=== PATIENT | male | born 1980 | race Caucasian/White ===

== ENCOUNTER 2016-11-17 03:38 | Emergency (ER) | payer SELFPAY ==
[2016-11-17 03:48] VITALS: BP 133/90; PULSE 92; BMI 45.6
[2016-11-17] MEDS ORDERED: LIDOCAINE 1%/EPI 1:100000 (20 ML MULTI DOSE VIAL) INF ONE (03:54)
[2016-11-17] MEDS ORDERED: BACITRACIN 0.9 GM PACKET TP ONE (04:37)
[2016-11-17] MEDS ORDERED: CEPHALEXIN MONOHYDRATE 500 MG CAPSULE (UD) PO ONE (04:37)
[2016-11-17] MEDS ORDERED: TETANUS AND DIPHTHERIA TOXOID 0.5 ML DISP.SYRIN IM ONE (04:37)
[2016-11-17] MEDS ORDERED: CEPHALEXIN MONOHYDRATE 250 MG CAPSULE (FP) ONE (05:04)
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
== END 2016-11-17 06:53 | disposition home or self-care (01) ==
LOC: JER 03:38
PROC: 0HQ0XZZ Repair Scalp Skin, External Approach (ICD-10-PCS; principal; 2016-11-17)
DX: S01.01XA Laceration without foreign body of scalp, initial encounter (principal); Y29.XXXA Contact with blunt object, undetermined intent, initial encounter; Y93.89 Activity, other specified; Y92.018 Other place in single-family (private) house as the place of occurrence of the external cause
CPT/HCPCS: 70450-TC; 99283-25

== ENCOUNTER 2018-10-25 14:47 | Inpatient (IN) | payer OTHER ==
--- NOTE | 2018-10-25 14:54 | PDOC ---
Rapid Medical Evaluation Time Seen by Provider: 10/25/18 14:50 Medical Evaluation: Allergies Allergy/AdvReac Type Severity Reaction Status Date / Time No Known Allergies Allergy Verified 10/25/18 14:49 10/25/18 14:50 I have performed a brief in-person evaluation of this patient. The patient presents with a chief complaint of: Dizziness upon waking up an hour ago. PMHx anemia, alcohol abuse. Pt says that after he drank 5 beers and his dizziness went away. NO dizziness now, no CP, no SOB. He wants to make sure his hemoglobin is not too low, he has been drinking a lot lately and not eating well. He drinks about 12 beers a day, has never had detox, would be willing to have detox. Pertinent physical exam findings: Pt in NAD, no clinical signs of intoxication I have ordered the following: CBC, CMP, mag, phos, type and screen, etoh level The patient will proceed to the ED for further evaluation. 10/25/18 14:56 Discharge Disposition - Diagnosis Dizziness - Referrals - Patient Instructions - Post Discharge Activity
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
--- NOTE | 2018-10-25 16:26 | PDOC ---
*Physical Exam - Vital Signs Last Vital Signs Temp Pulse Resp BP Pulse Ox 98.7 F 105 H 18 122/69 97 10/25/18 14:49 10/25/18 14:49 10/25/18 14:49 10/25/18 14:49 10/25/18 14:49 - Physical Exam General Appearance: Yes: Appropriately Dressed. No: Apparent Distress HEENT: positive: Normal Voice Respiratory/Chest: positive: Lungs Clear, Normal Breath Sounds. negative: Chest Tender, Respiratory Distress, Accessory Muscle Use Cardiovascular: positive: Regular Rhythm, S1, S2, Tachycardia. negative: JVD, Murmur Gastrointestinal/Abdominal: positive: Normal Bowel Sounds, Soft. negative: Tender Rectal Exam: positive: heme negative stool, normal exam, NL Prostate, normal rectal tone. negative: hemorrhoids Musculoskeletal: positive: Normal Inspection. negative: CVA Tenderness Extremity: positive: Normal Capillary Refill, Normal Inspection, Normal Range of Motion Integumentary: positive: Normal Color, Dry, Warm Neurologic: positive: cleaner touch up worker II-XII NML intact, Fully Oriented, Alert, Normal Mood/ Affect, Normal Response, Motor Strength 5/5, Finger to Nose. negative: Facial Droop, Sensory Deficit ED Treatment Course - LABORATORY CBC & Chemistry Diagram: 10/25/18 15:41 10/25/18 15:41 Progress Note - Progress Note Progress Note: Received signout from OSCAR Cornejo. Briefly this is a 38-year-old male history of anemia requiring transfusions presents emergency departments seeking detox but reporting he felt more fatigued than normal which is his usual symptom for anemia. Patient was concerned with bilateral Lotrimin swelling. Her previous provider patient's denied any active bleeding at this time. EKG, labs, urine and Duplex Dopplers are pending Medical Decision Making - Medical Decision Making 10/25/18 17:50 CBC notable for hemoglobin 7.6, hematocrit 25.7, platelets 35 Chemistry is notable for AST of 81, alkaline phosphatase-137 Coagulation profile is normal Urinalysis is unremarkable Patient's blood counts likely due to chronic alcohol use over the past 30 days. This patient is no active bleeding or petechia I will defer transfusion at this time with a low threshold to transfuse should he develop any active bleeding. Anemia studies have been ordered Awaiting results of DVT study and will admit to hospitalist service. 10/25/18 18:56 Notified by RN the patient was reporting a headache. Patient evaluated. Vague right-sided headache rated 2/10. Patient is unable to describe the pain. Neurologic exam is unremarkable. This erythematous center. We'll get a stat head CT to rule out ICH. 10/25/18 20:24 CT of the head as reviewed by me: No obvious bleed present. CIWA-[id number]- [id number] Headache is likely from alcohol withdrawal given patient had initial alcohol level of 300 and is now slightly tremulous. Heart rate is noted to be elevated at 109 bpm. I'll treat the patient with banana bag, Reglan 10 mg IV, Librium 50 mg orally. Awaiting official read of sonogram and head CT for admission. EKG is sinus rhythm with rate of 102. Normal intervals present. No skin changes noted 10/25/18 20:30 10/25/18 20:41 CT scan of the head as read by Dr. Padilla: No CT evidence of acute intracranial pathology. 10/25/18 21:04 10/25/18 21:17 Case has been discussed with the hospitalist who accepts patient for inpatient telemetry. *DC/Admit/Observation/Transfer Diagnosis at time of Disposition: Pancytopenia, Alcohol dependence with withdrawal, uncomplicated - Discharge Dispostion Condition at time of disposition: Fair Decision to Admit order: Yes - Referrals - Patient Instructions - Post Discharge Activity
[2018-10-25 16:33] LABS: BASO % 0.6 % (0-2.0); EOS % 2.8 % (0-4.5); HEMATOCRIT 25.7 % (35.4-49); HEMOGLOBIN 7.6 GM/dL (11.7-16.9); LYMPH % 22.6 % (8-40); MCHC 29.5 g/dl (32.0-35.9); MEAN CELL VOLUME 65.4 fl (80-96); MEAN PLT VOLUME 8.8 fl (7.5-11.1); MONO % 11.2 % (3.8-10.2); NEUT % 62.8 % (42.8-82.8); RBC 3.93 M/mm3 (4.00-5.60); RDW 20.9 % (11.9-15.9); WHITE BLOOD COUNT 3.4 K/mm3 (4.0-10.0)
[2018-10-25 16:36] LABS: INR 1.12 (0.83-1.09); PROTHROMBIN TIME (PATIENT) 13.2 SEC (9.7-13.0)
[2018-10-25 16:46] LABS: ALBUMIN 3.4 g/dl (3.4-5.0); ALK PHOS 137 U/L (45-117); ANION GAP 10 MMOL/L (8-16); BILIRUBIN,TOTAL 0.7 mg/dL (0.2-1); BLOOD UREA NITROGEN 3.2 mg/dL (7-18); CHLORIDE 108 mmol/L (98-107); CO2 25 mmol/L (21-32); CREATININE 0.5 mg/dL (0.55-1.3); GLUCOSE,RANDOM 105 mg/dL (74-106); POTASSIUM 3.5 mmol/L (3.5-5.1); SGOT/AST 81 U/L (15-37); SGPT/ALT 47 U/L (13-61); SODIUM 143 mmol/L (136-145); TOT PROT 7.3 g/dl (6.4-8.2)
[2018-10-25 17:04] LABS: PH,URINE 6.5 (5.0-8.0); URINE APPEARANCE CLEAR; URINE BILIRUBIN NEGATIVE (NEGATIVE); URINE COLOR YELLOW; URINE GLUCOSE (UA) NEGATIVE (NEGATIVE); URINE KETONE NEGATIVE (NEGATIVE); URINE LEUK ESTERASE NEGATIVE (NEGATIVE); URINE NITRITE NEGATIVE (NEGATIVE); URINE PROTEIN NEGATIVE (NEGATIVE)
[2018-10-25 17:07] LABS: MCH 19.3 pg (25.7-33.7)
[2018-10-25 17:08] LABS: PLATELET COUNT 35 K/MM3 (134-434)
[2018-10-25 17:52] LABS: ANISOCYTOSIS 2+; MACROCYTOSIS 1+; PLATELET ESTIMATE DECREASED
[2018-10-25 18:05] LABS: MAGNESIUM 1.8 mg/dL (1.8-2.4); PHOSPHOROUS 2.9 mg/dL (2.5-4.9)
[2018-10-25 19:05] LABS: IRON SERUM 13 ug/dL (50-175); TOTAL IRON BINDING CAPACITY 541 ug/dL (250-450)
[2018-10-25] MEDS ORDERED: chlordiazePOXIDE HCL 25 MG CAPSULE PO ONE (20:15)
[2018-10-25] MEDS ORDERED: FOLIC ACID INJECTION - 1 MG, THIAMINE HCL 100 MG, MULTIVIT INJECTION ADULT 10 ML in SOD... IVPB ONE (20:15)
[2018-10-25] MEDS ORDERED: METOCLOPRAMIDE HCL INJECTION 10 MG/2 ML VIAL IVPUSH ONE (20:15)
[2018-10-25] MEDS ORDERED: METOCLOPRAMIDE HCL INJECTION 10 MG/2 ML VIAL ONE (21:45)
[2018-10-25] MEDS ORDERED: chlordiazePOXIDE HCL 25 MG CAPSULE ONE (21:45)
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
[2018-10-25] MEDS ORDERED: MAGNESIUM SULF 50% (8.12 MEQ/2 ML-1 GM VIAL) IVPB ONE (23:02)
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
[2018-10-26] MEDS: chlordiazePOXIDE HCL 25 MG CAPSULE PO SCH ×5 (01:48→22:34)
[2018-10-26 08:19] LABS: BASO % 0.4 % (0-2.0); EOS % 3.6 % (0-4.5); HEMATOCRIT 22.9 % (35.4-49); LYMPH % 28.2 % (8-40); MCHC 30.4 g/dl (32.0-35.9); MEAN PLT VOLUME 8.8 fl (7.5-11.1); MONO % 11.1 % (3.8-10.2); NEUT % 56.7 % (42.8-82.8); RBC 3.52 M/mm3 (4.00-5.60); RDW 21.1 % (11.9-15.9); WHITE BLOOD COUNT 2.4 K/mm3 (4.0-10.0)
[2018-10-26 08:32] LABS: ALBUMIN 3.5 g/dl (3.4-5.0); BILIRUBIN,TOTAL 0.8 mg/dL (0.2-1); BLOOD UREA NITROGEN 4.7 mg/dL (7-18); CREATININE 0.4 mg/dL (0.55-1.3); PHOSPHOROUS 2.8 mg/dL (2.5-4.9); POTASSIUM 3.3 mmol/L (3.5-5.1); TOT PROT 6.8 g/dl (6.4-8.2)
[2018-10-26 08:46] LABS: MCH 19.8 pg (25.7-33.7)
[2018-10-26] MEDS: FOLIC ACID 1 MG TABLET (FP) PO SCH (09:00)
[2018-10-26] MEDS: THIAMINE HCL 100 MG TABLET (FP) PO SCH (09:00)
[2018-10-26 09:11] LABS: PLATELET COUNT 26 K/MM3 (134-434)
--- NOTE | 2018-10-26 10:37 | ECHO ---
Name: CARMEN ARIAS Exam:Adult Echocardiogram Study Date: 10/26/2018 07:59 AM Age: 38 yrs Reason For Study: pre syncope Height: 68 in Weight: 300 lb BSA: 2.4 m2 MMode/2D Measurements & Calculations IVSd: 1.1 cm Ao root diam: 3.3 cm LVIDd: 5.8 cm LA dimension: 4.0 cm LVIDs: 3.1 cm LVPWd: 1.3 cm LVPWs: 1.7 cm EDV(Teich): 163.9 ml ESV(Teich): 37.5 ml LVOT diam: 2.7 cm Doppler Measurements & Calculations MV E max willis: 90.8 cm/sec Ao V2 max: 173.7 cm/sec MV A max willis: 129.8 cm/sec Ao max P.2 mmHg MV E/A: 0.70 Ao V2 mean: 129.8 cm/sec MV dec time: 0.12 sec Ao mean P.9 mmHg Ao V2 VTI: 41.6 cm SHAWN(I,D): 2.9 cm2 SHAWN(V,D): 3.3 cm2 LV V1 max P.0 mmHg SV(LVOT): 121.9 ml LV V1 mean P.4 mmHg LV V1 max: 100.2 cm/sec LV V1 mean: 71.8 cm/sec LV V1 VTI: 21.0 cm PA V2 max: 167.0 cm/sec Med Peak E' Willis: 10.7 cm/sec PA max P.1 mmHg Med E/e': 8.5 Lat Peak E' Willis: 12.7 cm/sec Lat E/e': 7.1 Procedure The study was technically difficult with many images being suboptimal in quality. Left Ventricle Left ventricular systolic function is grossly normal. Ejection Fraction = 55-60%. The transmitral spe ctral Doppler flow pattern is suggestive of impaired LV relaxation. Regional wall motion abnormalities quentin ot be excluded due to limited visualization. Right Ventricle The right ventricle is normal in size and function. A moderator band is seen in the right ventricle. Atria The left atrium is borderline dilated. Right atrial size is normal. Mitral Valve The mitral valve is normal in structure and function. There is no mitral valve stenosis. There is tra ce mitral regurgitation. Tricuspid Valve The tricuspid valve is normal in structure and function. There is trace tricuspid regurgitation. Aortic Valve The aortic valve opens well. No hemodynamically significant valvular aortic stenosis. No aortic regur gitation is present. Pulmonic Valve The pulmonic valve is not well seen, but is grossly normal. There is no pulmonic valvular stenosis. Great Vessels The aortic root is normal size. Pericardium/Pleura There is no pericardial effusion. Interpretation Summary The study was technically difficult with many images being suboptimal in quality. Regional wall motion abnormalities cannot be excluded due to limited visualization. Left ventricular systolic function is grossly normal. Ejection Fraction = 55-60%. The right ventricle is normal in size and function. The left atrium is borderline dilated. There is trace tricuspid regurgitation. There is no pericardial effusion. MD Oliveira *Joey 10/26/2018 10:36 AM
[2018-10-26] MEDS ORDERED: POTASSIUM CHLORIDE ORAL LIQUID 20 MEQ/15 ML PO ONE (11:00)
[2018-10-26 12:16] LABS: PLATELET ESTIMATE DECREASED
--- NOTE | 2018-10-26 14:16 | EKG ---
Test Reason : Blood Pressure : / mmHG Vent. Rate : 102 BPM Atrial Rate : 102 BPM P-R Int : 178 ms QRS Dur : 112 ms QT Int : 372 ms P-R-T Axes : 034 -04 045 degrees QTc Int : 484 ms SINUS TACHYCARDIA POOR R WAVE PROGRESSION NO PREVIOUS ECGS AVAILABLE Confirmed by GIA SUÁREZ MD ([id number]) on 10/26/2018 2:15:52 PM Referred By: Confirmed By:GIA SUÁREZ MD
[2018-10-26] MEDS: chlordiazePOXIDE HCL 25 MG CAPSULE PO PRN (14:26)
--- NOTE | 2018-10-26 14:41 | PN ---
Progress Note, Physician Chief Complaint: patient complaining of diarrhea - Current Medication List Current Medications: Active Medications Chlordiazepoxide HCl (Librium -) 10 mg PO [id number] [facility] Stop: 10/28/18 23:01 Chlordiazepoxide HCl (Librium -) 10 mg PO Q12H STU Stop: 10/29/18 17:01 Chlordiazepoxide HCl (Librium -) 10 mg PO Q4H PRN PRN Reason: WITHDRAWAL(CONT SUBST) Stop: 10/29/18 00:00 Chlordiazepoxide HCl (Librium -) 10 mg PO ONCE@0500 ONE Stop: 10/30/18 05:01 Chlordiazepoxide HCl (Librium -) 50 mg PO [id number] [facility] Stop: 10/26/18 23:01 Last Admin: 10/26/18 12:12 Dose: 50 mg Chlordiazepoxide HCl (Librium -) 25 mg PO [id number] [facility] Stop: 10/27/18 23:01 Chlordiazepoxide HCl (Librium -) 25 mg PO Q4H PRN PRN Reason: WITHDRAWAL(CONT SUBST) Stop: 10/27/18 23:59 Last Admin: 10/26/18 14:26 Dose: 25 mg Folic Acid (Folic Acid -) 1 mg PO DAILY [facility] Last Admin: 10/26/18 09:00 Dose: 1 mg Pantoprazole Sodium (Protonix -) 40 mg PO BID [facility] Thiamine HCl (Vitamin B1 -) 100 mg PO DAILY [facility] Last Admin: 10/26/18 09:00 Dose: 100 mg - Objective Vital Signs: Vital Signs Temperature 98.1 F 10/26/18 10:00 Pulse Rate 110 H 10/26/18 10:00 Respiratory Rate 20 10/26/18 10:00 Blood Pressure 129/77 10/26/18 10:00 O2 Sat by Pulse Oximetry (%) 97 10/26/18 09:00 Constitutional: Yes: Calm, Obese Cardiovascular: Yes: Regular Rate and Rhythm, S1, S2 Respiratory: Yes: CTA Bilaterally Gastrointestinal: Yes: Normal Bowel Sounds, Soft, Abdomen, Obese Edema: Yes Neurological: Yes: Alert, Oriented Labs: CBC, BMP 10/26/18 06:04 10/26/18 06:04 INR, PTT INR 1.12 (0.83-1.09) H 08/01/19 15:41 Assessment/Plan diarrhea check stool ova and parasite c diff monitor lytes thrombocytopenia could be secondary to alcohol toxicity chck liver sono heme consult alcohol withdrawal librium taper
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
[2018-10-26] MEDS: IRON SUCROSE INJECTION 300 MG in SODIUM CHLORIDE 235 ML IVPB SCH (17:42)
--- NOTE | 2018-10-26 19:16 | PN ---
Teaching Attending Note Name of Resident: Alea Martínez ATTENDING PHYSICIAN STATEMENT I saw and evaluated the patient. I reviewed the resident's note and discussed the case with the resident. I agree with the resident's findings and plan as documented. ASSESSMENT AND PLAN: 38 y/o patient with morbid obesity, venous stasis, h/o alcohol abuse,chronic liver disease, anemia, thrombocytopenia Iron deficient Worsened pancytopenia related to alcohol induced marrow suppression. r/o occult infection check u/s liver/spleen check B12/folate/TSH GI w/u once counts improved will follow
[2018-10-26] MEDS ORDERED: PANTOPRAZOLE 40 MG TABLET (FP) PO SCH (22:00)
[2018-10-27] MEDS: chlordiazePOXIDE HCL 25 MG CAPSULE PO SCH ×4 (06:33→22:07)
[2018-10-27 08:40] LABS: BASO % 0.5 % (0-2.0); EOS % 5.1 % (0-4.5); HEMATOCRIT 21.5 % (35.4-49); LYMPH % 21.3 % (8-40); MEAN CELL VOLUME 65.9 fl (80-96); MEAN PLT VOLUME 9.9 fl (7.5-11.1); MONO % 14.4 % (3.8-10.2); NEUT % 58.7 % (42.8-82.8); RBC 3.26 M/mm3 (4.00-5.60); RDW 21.5 % (11.9-15.9); WHITE BLOOD COUNT 2.7 K/mm3 (4.0-10.0)
[2018-10-27 08:41] LABS: MCH 19.8 pg (25.7-33.7)
[2018-10-27 08:43] LABS: HEMOGLOBIN 6.5 GM/dL (11.7-16.9); PLATELET COUNT 30 K/MM3 (134-434)
[2018-10-27 09:08] LABS: CHOLESTEROL 123 mg/dL (50-200); HDL CHOLESTEROL 35 mg/dL (40-60); TRIGLYCERIDES 73 mg/dL (0-150)
[2018-10-27 09:28] LABS: BILIRUBIN,TOTAL 1.3 mg/dL (0.2-1); BLOOD UREA NITROGEN 6.8 mg/dL (7-18); CALCIUM 7.9 mg/dL (8.5-10.1); CREATININE 0.5 mg/dL (0.55-1.3); MAGNESIUM 1.8 mg/dL (1.8-2.4); POTASSIUM 3.4 mmol/L (3.5-5.1)
[2018-10-27] MEDS: FOLIC ACID 1 MG TABLET (FP) PO SCH (09:32)
[2018-10-27] MEDS: THIAMINE HCL 100 MG TABLET (FP) PO SCH (09:33)
[2018-10-27] MEDS: chlordiazePOXIDE HCL 25 MG CAPSULE PO PRN (09:33)
--- NOTE | 2018-10-27 14:17 | PN.GI ---
GI Progress Note Subjective: No acute events No overt bleeding ABD US reveals gallstones and GB polyp. No dilated ducts - Objective Vital Signs: Vital Signs Temperature 99.1 F 10/27/18 09:00 Pulse Rate 94 H 10/27/18 09:00 Respiratory Rate 20 10/27/18 09:00 Blood Pressure 142/79 10/27/18 09:00 O2 Sat by Pulse Oximetry (%) 97 10/27/18 09:00 Constitutional: Calm Eyes: No: Sclera Icterus Cardiovascular: Yes: Regular Rate and Rhythm Respiratory: Yes: Diminished (at bases b/l) Gastrointestinal Inspection: Yes: Other (Large pannus) ...Auscultate: Yes: Normoactive Bowel Sounds ...Palpate: Yes: Soft. No: Tenderness ...Percussion: No: Tympanitic Edema: Yes Neurological: Yes: Alert. No: Asterixis Labs: CBC, BMP 10/27/18 06:29 10/27/18 06:29 INR, PTT INR 1.12 (0.83-1.09) H 10/25/18 15:41 Problem List - Problems (1) Pancytopenia Assessment/Plan: Compnent of iron deficiency When platelet count and Hgb allow, EGD/Colonoscopy. Discussed potential risks of the procedures like but not liomited to bleeding, perforation requiriong surgery to repair, infection, sedation medication effects all of which could be potentially life threatening. He had agreed to the procedures. Code(s): D61.818 - OTHER PANCYTOPENIA (2) Gallstones Assessment/Plan: With GB polyp. Under normal circumstances, patient with concomitant stone and polyps should be evaluated for cholecystectomy given potential increased risk for GB cancer. This could be addressed when Mr. Whaley' clinical status improves. Code(s): K80.20 - CALCULUS OF GALLBLADDER W/O CHOLECYSTITIS W/O OBSTRUCTION
--- NOTE | 2018-10-27 14:48 | PN ---
Progress Note, Physician Chief Complaint: Dizziness Anemia Thrombocytopenia Obesity History of Present Illness: NAD in bed self ambulatory finished 1 unit of PRBC Severely Iron deficient due to poor diet Accepts that his alcoholism is an issue, wants help. Previously followed mandatory outpatient program in [place] when he lived there in his 20's, however, relapsed after 3-4 months. Has not seeked any help since. Family hx of alcoholism in father and 5 of his uncles - Current Medication List Current Medications: Active Medications Chlordiazepoxide HCl (Librium -) 10 mg PO [id number] [facility] Stop: 10/28/18 23:01 Chlordiazepoxide HCl (Librium -) 10 mg PO Q12H [facility] Stop: 10/29/18 17:01 Chlordiazepoxide HCl (Librium -) 10 mg PO Q4H PRN PRN Reason: WITHDRAWAL(CONT SUBST) Stop: 10/29/18 00:00 Chlordiazepoxide HCl (Librium -) 10 mg PO ONCE@0500 ONE Stop: 10/30/18 05:01 Chlordiazepoxide HCl (Librium -) 25 mg PO [id number] [facility] Stop: 10/27/18 23:01 Last Admin: 10/27/18 12:07 Dose: 25 mg Chlordiazepoxide HCl (Librium -) 25 mg PO Q4H PRN PRN Reason: WITHDRAWAL(CONT SUBST) Stop: 10/27/18 23:59 Last Admin: 10/27/18 09:33 Dose: 25 mg Ferrous Sulfate (Feosol -) 325 mg PO DAILY [facility] Folic Acid (Folic Acid -) 1 mg PO DAILY [facility] Last Admin: 10/27/18 09:32 Dose: 1 mg Iron Sucrose 300 mg/ Sodium (Chloride) 250 mls @ 250 mls/hr IVPB DAILY@1600 [facility] Stop: 10/28/18 16:59 Last Admin: 10/26/18 17:42 Dose: 250 mls/hr Potassium Chloride (Potassium Chloride Oral Liquid) 40 meq PO ONCE ONE Stop: 10/27/18 14:47 Thiamine HCl (Vitamin B1 -) 100 mg PO DAILY [facility] Last Admin: 10/27/18 09:33 Dose: 100 mg - Objective Vital Signs: Vital Signs Temperature 99.1 F 10/27/18 09:00 Pulse Rate 94 H 10/27/18 09:00 Respiratory Rate 20 10/27/18 09:00 Blood Pressure 142/79 10/27/18 09:00 O2 Sat by Pulse Oximetry (%) 97 10/27/18 09:00 Constitutional: Yes: Well Nourished, No Distress, Calm, Obese Cardiovascular: Yes: Regular Rate and Rhythm Respiratory: Yes: Regular Gastrointestinal: Yes: WNL, Normal Bowel Sounds, Soft, Abdomen, Obese Genitourinary: Yes: WNL Musculoskeletal: Yes: WNL Extremities: Yes: WNL Edema: Yes Edema: LLE: 1+, RLE: 1+ Peripheral Pulses WNL: Yes Neurological: Yes: Alert, Oriented, Tremors (mild) Psychiatric: Yes: Alert, Oriented Labs: CBC, BMP 10/27/18 06:29 10/27/18 06:29 INR, PTT INR 1.12 (0.83-1.09) H 10/25/18 15:41 Problem List - Problems (1) Obesity Assessment/Plan: -RD consult Code(s): E66.9 - OBESITY, UNSPECIFIED (2) Anemia Assessment/Plan: -Hematology on board -PRBC 1 unit today -monitor daily Hg -Venofer daily x 3 -Ferrous sulfate 1 tab po daily -Stool guaiac negative -Also seen by GI -No invasive procedures for now due to severe thrombocytopenia Code(s): D64.9 - ANEMIA, UNSPECIFIED (3) Dizziness Assessment/Plan: -Cardiology consult -echo and carotid U/S reviewed -Tele monitor Code(s): R42 - DIZZINESS AND GIDDINESS (4) Alcohol dependence with withdrawal, uncomplicated Assessment/Plan: -[facility] consult -On librium protocol -detox inpatient or outpatient upon discharge Code(s): F10.230 - ALCOHOL DEPENDENCE WITH WITHDRAWAL, UNCOMPLICATED (5) Pancytopenia Code(s): D61.818 - OTHER PANCYTOPENIA (6) Hypokalemia Assessment/Plan: -KCl 40 meq once -monitor trend Code(s): E87.6 - HYPOKALEMIA Assessment/Plan see problem list
[2018-10-27] MEDS ORDERED: POTASSIUM CHLORIDE ORAL LIQUID 20 MEQ/15 ML PO ONE (15:30)
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
[2018-10-27] MEDS: IRON SUCROSE INJECTION 300 MG in SODIUM CHLORIDE 235 ML IVPB SCH (18:27)
[2018-10-28] MEDS ORDERED: chlordiazePOXIDE HCL 10 MG CAPSULE PO PRN
[2018-10-28] MEDS: chlordiazePOXIDE 5 MG CAPSULE PO SCH ×4 (05:34→22:37)
[2018-10-28 08:48] LABS: ALBUMIN 2.9 g/dl (3.4-5.0); BLOOD UREA NITROGEN 6.9 mg/dL (7-18); CALCIUM 7.9 mg/dL (8.5-10.1); CREATININE 0.4 mg/dL (0.55-1.3); POTASSIUM 3.4 mmol/L (3.5-5.1)
[2018-10-28 08:57] LABS: BASO % 0.6 % (0-2.0); EOS % 6.2 % (0-4.5); HEMATOCRIT 23.1 % (35.4-49); LYMPH % 20.9 % (8-40); MCH 20.5 pg (25.7-33.7); MCHC 30.4 g/dl (32.0-35.9); MEAN CELL VOLUME 67.4 fl (80-96); MEAN PLT VOLUME 8.8 fl (7.5-11.1); MONO % 13.7 % (3.8-10.2); NEUT % 58.6 % (42.8-82.8); PLATELET COUNT 40 K/MM3 (134-434); RBC 3.43 M/mm3 (4.00-5.60); RDW 22.8 % (11.9-15.9); WHITE BLOOD COUNT 3.1 K/mm3 (4.0-10.0)
[2018-10-28 10:24] LABS: PLATELET ESTIMATE DECREASED
[2018-10-28] MEDS: FOLIC ACID 1 MG TABLET (FP) PO SCH (10:38)
[2018-10-28] MEDS: FERROUS SO4 325 MG TABLET (FP) PO SCH (10:38)
[2018-10-28] MEDS: THIAMINE HCL 100 MG TABLET (FP) PO SCH (10:38)
[2018-10-28] MEDS ORDERED: POTASSIUM CHLORIDE TABS 10 MEQ TABLET.ER (FP) PO SCH (11:42)
--- NOTE | 2018-10-28 11:46 | PN ---
Progress Note, Physician Chief Complaint: Dizziness Anemia Thrombocytopenia Obesity History of Present Illness: NAD in bed self ambulatory Received 1 unit of PRBC yesterday H/h mildly improved Severely Iron deficient due to poor diet Accepts that his alcoholism is an issue, wants help. Previously followed mandatory outpatient program in [place] when he lived there in his 20's, however, relapsed after 3-4 months. Has not seeked any help since. Family hx of alcoholism in father and 5 of his uncles - Current Medication List Current Medications: Active Medications Chlordiazepoxide HCl (Librium -) 10 mg PO [id number] [facility] Stop: 10/28/18 23:01 Last Admin: 10/28/18 10:39 Dose: 10 mg Chlordiazepoxide HCl (Librium -) 10 mg PO Q12H [facility] Stop: 10/29/18 17:01 Chlordiazepoxide HCl (Librium -) 10 mg PO Q4H PRN PRN Reason: WITHDRAWAL(CONT SUBST) Stop: 10/29/18 00:00 Chlordiazepoxide HCl (Librium -) 10 mg PO ONCE@0500 ONE Stop: 10/30/18 05:01 Ferrous Sulfate (Feosol -) 325 mg PO DAILY [facility] Last Admin: 10/28/18 10:38 Dose: 325 mg Folic Acid (Folic Acid -) 1 mg PO DAILY [facility] Last Admin: 10/28/18 10:38 Dose: 1 mg Iron Sucrose 300 mg/ Sodium (Chloride) 250 mls @ 250 mls/hr IVPB DAILY@1600 [facility] Stop: 10/28/18 16:59 Last Admin: 10/27/18 18:27 Dose: 250 mls/hr Potassium Chloride (K-Dur -) 40 meq PO BID [facility] Thiamine HCl (Vitamin B1 -) 100 mg PO DAILY [facility] Last Admin: 10/28/18 10:38 Dose: 100 mg - Objective Vital Signs: Vital Signs Temperature 98.7 F 10/28/18 06:00 Pulse Rate 82 10/28/18 06:00 Respiratory Rate 18 10/28/18 06:00 Blood Pressure 120/60 10/28/18 06:00 O2 Sat by Pulse Oximetry (%) 96 10/27/18 21:00 Constitutional: Yes: Well Nourished, No Distress, Calm, Obese Cardiovascular: Yes: Regular Rate and Rhythm Respiratory: Yes: Regular Gastrointestinal: Yes: Normal Bowel Sounds, Soft, Abdomen, Obese Genitourinary: Yes: WNL Musculoskeletal: Yes: WNL Extremities: Yes: WNL Edema: Yes Edema: LLE: 1+, RLE: 1+ Peripheral Pulses WNL: Yes Neurological: Yes: Alert, Oriented Psychiatric: Yes: Alert, Oriented Labs: CBC, BMP 10/28/18 07:00 10/28/18 07:00 INR, PTT INR 1.12 (0.83-1.09) H 10/25/18 15:41 Problem List - Problems (1) Obesity Assessment/Plan: -RD consult Code(s): E66.9 - OBESITY, UNSPECIFIED (2) Anemia Assessment/Plan: -Hematology on board -PRBC 2 units today -monitor daily Hg -Venofer daily x 3 -Ferrous sulfate 1 tab po daily -Stool guaiac negative -Also seen by GI -No invasive procedures for now due to severe thrombocytopenia Code(s): D64.9 - ANEMIA, UNSPECIFIED (3) Dizziness Assessment/Plan: -Cardiology consult -echo and carotid U/S reviewed -Tele monitor Code(s): R42 - DIZZINESS AND GIDDINESS (4) Alcohol dependence with withdrawal, uncomplicated Assessment/Plan: -S consult -On librium protocol -detox inpatient or outpatient upon discharge Code(s): F10.230 - ALCOHOL DEPENDENCE WITH WITHDRAWAL, UNCOMPLICATED (5) Pancytopenia Code(s): D61.818 - OTHER PANCYTOPENIA (6) Hypokalemia Assessment/Plan: -KCl 40 meq BID -monitor trend Code(s): E87.6 - HYPOKALEMIA Assessment/Plan see problem list
[2018-10-28] MEDS: IRON SUCROSE INJECTION 300 MG in SODIUM CHLORIDE 235 ML IVPB SCH (15:48)
[2018-10-28] MEDS: POTASSIUM CHLORIDE TABS 20 MEQ TABLET.ER (FP) PO SCH (21:08)
[2018-10-29] MEDS: chlordiazePOXIDE 5 MG CAPSULE PO SCH ×2 (04:37→17:05)
[2018-10-29 06:26] LABS: BASO % 0.7 % (0-2.0); EOS % 6.4 % (0-4.5); HEMATOCRIT 26.7 % (35.4-49); HEMOGLOBIN 8.4 GM/dL (11.7-16.9); LYMPH % 20.4 % (8-40); MCHC 31.3 g/dl (32.0-35.9); MEAN CELL VOLUME 70.3 fl (80-96); MEAN PLT VOLUME 9.6 fl (7.5-11.1); MONO % 13.9 % (3.8-10.2); NEUT % 58.6 % (42.8-82.8); PLATELET COUNT 57 K/MM3 (134-434); RDW 24.6 % (11.9-15.9)
[2018-10-29 06:53] LABS: ALBUMIN 3.2 g/dl (3.4-5.0); BILIRUBIN,TOTAL 1.1 mg/dL (0.2-1); BLOOD UREA NITROGEN 5.5 mg/dL (7-18); CALCIUM 8.4 mg/dL (8.5-10.1); CREATININE 0.5 mg/dL (0.55-1.3); POTASSIUM 3.7 mmol/L (3.5-5.1); TOT PROT 6.3 g/dl (6.4-8.2)
[2018-10-29] MEDS: POTASSIUM CHLORIDE TABS 20 MEQ TABLET.ER (FP) PO SCH ×2 (09:47→21:14)
[2018-10-29] MEDS: THIAMINE HCL 100 MG TABLET (FP) PO SCH (09:47)
[2018-10-29] MEDS: FERROUS SO4 325 MG TABLET (FP) PO SCH (09:47)
[2018-10-29] MEDS: FOLIC ACID 1 MG TABLET (FP) PO SCH (09:47)
[2018-10-29] MEDS ORDERED: IRON SUCROSE INJECTION 200 MG in SODIUM CHLORIDE 90 ML IVPB ONE (13:04)
--- NOTE | 2018-10-29 13:28 | PN ---
Progress Note (short form) - Note Progress Note: Patient seen and examined Labs reviewed Patient denies withdrawal symptoms. Denies abdominal pain NAD Anicteric Morbidly obese CBC, BMP 10/29/18 05:30 10/29/18 05:30 INR, PTT INR 1.12 (0.83-1.09) H 10/25/18 15:41 Impression: Iron deficiency anemia with pancytopenia. No longer in withdrawal. No localizing features. Will plan for colonoscopy and endoscopy on Monday. Clears Monday 4L golytely and 20mg PO dulcolax Monday at 5pm NPO after MN for procedures Wed
[2018-10-29 14:29] LABS: ANISOCYTOSIS 2+; MACROCYTOSIS 0; OVALOCYTE 1+; PLATELET ESTIMATE DECREASED
--- NOTE | 2018-10-29 14:34 | PN ---
Progress Note, Physician Chief Complaint: patient got 2 unts of prbc and 3 doses of venofer to get egd/coloscopy on monday - Current Medication List Current Medications: Active Medications Bisacodyl (Dulcolax -) 20 mg PO ONCE ONE Stop: 10/30/18 15:31 Chlordiazepoxide HCl (Librium -) 10 mg PO Q12H [facility] Stop: 10/29/18 17:01 Last Admin: 10/29/18 04:37 Dose: 10 mg Chlordiazepoxide HCl (Librium -) 10 mg PO ONCE@0500 ONE Stop: 10/30/18 05:01 Ferrous Sulfate (Feosol -) 325 mg PO DAILY [facility] Last Admin: 10/29/18 09:47 Dose: 325 mg Folic Acid (Folic Acid -) 1 mg PO DAILY [facility] Last Admin: 10/29/18 09:47 Dose: 1 mg Polyethylene Glycol/Electrolytes (Golytely Solution -) 4,000 ml PO ONCE ONE Stop: 10/30/18 17:01 Potassium Chloride (K-Dur -) 40 meq PO BID [facility] Last Admin: 10/29/18 09:47 Dose: 40 meq Thiamine HCl (Vitamin B1 -) 100 mg PO DAILY [facility] Last Admin: 10/29/18 09:47 Dose: 100 mg - Objective Vital Signs: Vital Signs Temperature 98.7 F 10/29/18 12:00 Pulse Rate 86 10/29/18 12:00 Respiratory Rate 20 10/29/18 12:00 Blood Pressure 115/59 L 10/29/18 12:00 O2 Sat by Pulse Oximetry (%) 95 10/29/18 09:00 Constitutional: Yes: Calm Cardiovascular: Yes: Regular Rate and Rhythm, S1, S2 Respiratory: Yes: CTA Bilaterally Gastrointestinal: Yes: Normal Bowel Sounds, Soft Edema: Yes Neurological: Yes: Alert, Oriented Labs: CBC, BMP 10/29/18 05:30 10/29/18 05:30 INR, PTT INR 1.12 (0.83-1.09) H 10/25/18 15:41 Problem List - Problems (1) Alcohol dependence with withdrawal, uncomplicated Assessment/Plan: librium taper Code(s): F10.230 - ALCOHOL DEPENDENCE WITH WITHDRAWAL, UNCOMPLICATED (2) Anemia Assessment/Plan: got 2 units prbc and 3 dose of iv venofer to get egd and colonscopy on monday heme on board as well Code(s): D64.9 - ANEMIA, UNSPECIFIED Qualifiers: Anemia type: iron deficiency
[2018-10-29] MEDS ORDERED: IRON SUCROSE INJECTION 300 MG in SODIUM CHLORIDE 235 ML IVPB ONE (15:00)
--- NOTE | 2018-10-29 15:53 | PN ---
Progress Note (short form) - Note Progress Note: Surgery This is a 38-year-old male with a history of anemia requiring transfusions ( patient reports his anemia secondary to "nutritional deficiency and drinking"). Admitted for Anemia and fatigue. He states that he has been on a "binge" drinking 12-14 beers per day for the past month. He notes that recently, his legs have become swollen, tense, and painful. He denies any wounds on the LE. He denies chest pain, palpitations, or shortness of breath. He denies blood in the stool or any other abnormal bleeding. The patient denies any history of withdrawal seizures, but does sometimes have tremors. He would like to enter a detox program and has a supportive family to help him through the process. Vital Signs Temp 98.7 F 10/29/18 12:00 Pulse 86 10/29/18 12:00 Resp 20 10/29/18 12:00 BP 115/59 L 10/29/18 12:00 Pulse Ox 95 10/29/18 09:00 Intake & Output 10/28/18 10/29/18 10/29/18 23:59 11:59 23:59 Intake Total 1150 10 500 Balance 1150 10 500 Intake: IV 10 sl 10 IVPB 450 Oral 500 Packed Cells 700 Other: Voiding Method Toilet Toilet Toilet # Unmeasured Voids Void 2 2 CBC, BMP 10/29/18 05:30 10/29/18 05:30 PE: A&Ox3, NAD Unlabored resp on RA B/L LE diffuse +3 pitting edema throughout, compartments soft, supple with mild ttp throughout. feet warm and well perfused with no evidence of breakdown our wounds. +2 DP pulses. Problem List - Problems (1) Lymphedema Assessment/Plan: 38yo male with b/l LE lymphedema, ETOH abuse and chronic anemia with no evidence for vascular intervention. 1) Apply Compression Eduardo wrap to b/l LE daily 2) Elevate LE while in bed 3) DVT prophylaxis 4) f/u in wound care clinic with Mukul for lymphedema pump Evaluation and plan discussed with Dr Gilman. Code(s): I89.0 - LYMPHEDEMA, NOT ELSEWHERE CLASSIFIED
[2018-10-29] MEDS ORDERED: PT OWN MED DRAWER 7, Y5N ONE (19:36)
[2018-10-30 01:02] VITALS: BMI 52.2
[2018-10-30] MEDS ORDERED: chlordiazePOXIDE 5 MG CAPSULE PO ONE (05:00)
[2018-10-30 06:07] LABS: GLIADIN ANTIBODY IGA 7 units (0-19); GLIADIN ANTIBODY IGG 5 units (0-19); TRANSGLUTAMINASE IGG < 2 U/mL (0-5)
[2018-10-30 06:41] LABS: BASO % 0.5 % (0-2.0); EOS % 6.2 % (0-4.5); HEMATOCRIT 28.5 % (35.4-49); HEMOGLOBIN 8.6 GM/dL (11.7-16.9); LYMPH % 20.6 % (8-40); MCH 21.9 pg (25.7-33.7); MCHC 30.3 g/dl (32.0-35.9); MEAN CELL VOLUME 72.5 fl (80-96); MEAN PLT VOLUME 8.5 fl (7.5-11.1); NEUT % 58.7 % (42.8-82.8); PLATELET COUNT 73 K/MM3 (134-434); RBC 3.93 M/mm3 (4.00-5.60); RDW 25.2 % (11.9-15.9); WHITE BLOOD COUNT 3.9 K/mm3 (4.0-10.0)
[2018-10-30 07:23] LABS: ALBUMIN 3.1 g/dl (3.4-5.0); BLOOD UREA NITROGEN 8.6 mg/dL (7-18); CALCIUM 8.5 mg/dL (8.5-10.1); CREATININE 0.5 mg/dL (0.55-1.3); MAGNESIUM 1.7 mg/dL (1.8-2.4); POTASSIUM 3.9 mmol/L (3.5-5.1); TOT PROT 6.3 g/dl (6.4-8.2)
[2018-10-30] MEDS: POTASSIUM CHLORIDE TABS 20 MEQ TABLET.ER (FP) PO SCH ×2 (10:18→21:06)
[2018-10-30] MEDS: FERROUS SO4 325 MG TABLET (FP) PO SCH (10:18)
[2018-10-30] MEDS: FOLIC ACID 1 MG TABLET (FP) PO SCH (10:18)
[2018-10-30] MEDS: THIAMINE HCL 100 MG TABLET (FP) PO SCH (10:22)
--- NOTE | 2018-10-30 11:27 | PN ---
Progress Note, Physician Chief Complaint: Dizziness Anemia Thrombocytopenia Obesity History of Present Illness: NAD h/h improved self ambulatory Severely Iron deficient due to poor diet Accepts that his alcoholism is an issue, wants help. Previously followed mandatory outpatient program in [place] when he lived there in his 20's, however, relapsed after 3-4 months. Has not seeked any help since. Family hx of alcoholism in father and 5 of his uncles - Current Medication List Current Medications: Active Medications Bisacodyl (Dulcolax -) 20 mg PO ONCE ONE Stop: 10/30/18 13:31 Ferrous Sulfate (Feosol -) 325 mg PO DAILY [facility] Last Admin: 10/30/18 10:18 Dose: 325 mg Folic Acid (Folic Acid -) 1 mg PO DAILY [facility] Last Admin: 10/30/18 10:18 Dose: 1 mg Polyethylene Glycol/Electrolytes (Golytely Solution -) 4,000 ml PO ONCE ONE Stop: 10/30/18 17:01 Potassium Chloride (K-Dur -) 40 meq PO BID [facility] Last Admin: 10/30/18 10:18 Dose: 40 meq Thiamine HCl (Vitamin B1 -) 100 mg PO DAILY [facility] Last Admin: 10/30/18 10:22 Dose: 100 mg - Objective Vital Signs: Vital Signs Temperature 98.8 F 10/30/18 05:10 Pulse Rate 84 10/30/18 05:10 Respiratory Rate 20 10/30/18 05:10 Blood Pressure 130/84 10/30/18 05:10 O2 Sat by Pulse Oximetry (%) 95 10/29/18 20:52 Constitutional: Yes: Well Nourished, No Distress, Calm, Obese Cardiovascular: Yes: Regular Rate and Rhythm Respiratory: Yes: Regular Gastrointestinal: Yes: WNL, Normal Bowel Sounds, Soft Genitourinary: Yes: WNL Musculoskeletal: Yes: WNL Extremities: Yes: WNL Edema: Yes (BLLE lymphedema) Peripheral Pulses WNL: Yes Neurological: Yes: Alert, Oriented Psychiatric: Yes: Alert, Oriented Labs: CBC, BMP 10/30/18 05:30 10/30/18 05:30 INR, PTT INR 1.12 (0.83-1.09) H 10/25/18 15:41 Problem List - Problems (1) Obesity Assessment/Plan: -RD consult Code(s): E66.9 - OBESITY, UNSPECIFIED (2) Anemia Assessment/Plan: -Hematology on board -monitor daily Hg -received Venofer -Ferrous sulfate 1 tab po daily -Stool guaiac negative -Also seen by GI -Going for EGD+ colonoscopy in AM Code(s): D64.9 - ANEMIA, UNSPECIFIED Qualifiers: Anemia type: iron deficiency (3) Dizziness Assessment/Plan: -resolved -Cardiology consult -echo and carotid U/S reviewed -d/c tele Code(s): R42 - DIZZINESS AND GIDDINESS (4) Alcohol dependence with withdrawal, uncomplicated Assessment/Plan: -[facility] consult -On librium protocol -detox inpatient or outpatient upon discharge Code(s): F10.230 - ALCOHOL DEPENDENCE WITH WITHDRAWAL, UNCOMPLICATED (5) Pancytopenia Code(s): D61.818 - OTHER PANCYTOPENIA (6) Hypokalemia Assessment/Plan: -resolved -KCl 40 meq BID -monitor trend Code(s): E87.6 - HYPOKALEMIA (7) Lymphedema Assessment/Plan: Seen by vascular surgery -DANIEL wrap BLLE -Lymphedema pump -Wound care f/u o/p Code(s): I89.0 - LYMPHEDEMA, NOT ELSEWHERE CLASSIFIED Assessment/Plan see problem list Hep B vaccine x 1
[2018-10-30] MEDS ORDERED: HEPATITIS B VIRUS VACCINE-PF 20 MCG/1ML PRE-FILLED SYRINGE IM ONE ×2 (12:30→14:00)
[2018-10-30] MEDS ORDERED: BISACODYL 5 MG TABLET.DR (FP) PO ONE ×2 (13:30)
[2018-10-30] MEDS ORDERED: IRON SUCROSE INJECTION 300 MG in SODIUM CHLORIDE 235 ML IVPB ONE (13:36)
[2018-10-30] MEDS ORDERED: PEG 3350/NA SULF BICARB CL/KCL 4000 ML SOLN.RECON PO ONE ×2 (17:00)
[2018-10-31 07:30] LABS: BASO % 0.9 % (0-2.0); EOS % 6.6 % (0-4.5); HEMATOCRIT 29.5 % (35.4-49); MCH 22.4 pg (25.7-33.7); MCHC 30.7 g/dl (32.0-35.9); MEAN PLT VOLUME 9.1 fl (7.5-11.1); MONO % 13.9 % (3.8-10.2); NEUT % 60.6 % (42.8-82.8); PLATELET COUNT 88 K/MM3 (134-434); RBC 4.04 M/mm3 (4.00-5.60); RDW 27.3 % (11.9-15.9); WHITE BLOOD COUNT 4.6 K/mm3 (4.0-10.0)
[2018-10-31 07:47] LABS: ALBUMIN 3.2 g/dl (3.4-5.0); BILIRUBIN,TOTAL 1.3 mg/dL (0.2-1); BLOOD UREA NITROGEN 10.3 mg/dL (7-18); CALCIUM 8.3 mg/dL (8.5-10.1); CREATININE 0.7 mg/dL (0.55-1.3); POTASSIUM 4.3 mmol/L (3.5-5.1); TOT PROT 6.6 g/dl (6.4-8.2)
[2018-10-31] MEDS ORDERED: THIAMINE HCL 100 MG TABLET (FP) PO SCH (10:00)
[2018-10-31] MEDS ORDERED: FERROUS SO4 325 MG TABLET (FP) PO SCH (10:00)
[2018-10-31] MEDS ORDERED: FOLIC ACID 1 MG TABLET (FP) PO SCH (10:00)
[2018-10-31] MEDS ORDERED: SODIUM PHOSPHATE/NA BIPHOS 133 ML ENEMA PR ONE ×2 (10:25→14:17)
--- NOTE | 2018-10-31 11:18 | PN ---
Progress Note, Physician Chief Complaint: Dizziness Anemia Thrombocytopenia Obesity History of Present Illness: NAD h/h improved self ambulatory Severely Iron deficient due to poor diet Accepts that his alcoholism is an issue, wants help. Previously followed mandatory outpatient program in [place] when he lived there in his 20's, however, relapsed after 3-4 months. Has not seeked any help since. Family hx of alcoholism in father and 5 of his uncles For EGD+colonoscopy today - Current Medication List Current Medications: Active Medications Ferrous Sulfate (Feosol -) 325 mg PO DAILY [facility] Folic Acid (Folic Acid -) 1 mg PO DAILY [facility] Potassium Chloride (K-Dur -) 40 meq PO BID [facility] Last Admin: 10/30/18 21:06 Dose: 40 meq Thiamine HCl (Vitamin B1 -) 100 mg PO DAILY [facility] - Objective Vital Signs: Vital Signs Temperature 98.7 F 10/31/18 06:16 Pulse Rate 82 10/31/18 06:16 Respiratory Rate 18 10/31/18 06:16 Blood Pressure 113/61 10/31/18 06:16 O2 Sat by Pulse Oximetry (%) 96 10/30/18 21:00 Constitutional: Yes: Well Nourished, No Distress, Calm, Obese Cardiovascular: Yes: Regular Rate and Rhythm Respiratory: Yes: Regular Gastrointestinal: Yes: WNL Genitourinary: Yes: WNL Musculoskeletal: Yes: WNL Extremities: Yes: WNL Edema: Yes (BLLE non pitting edema) Peripheral Pulses WNL: Yes Neurological: Yes: Alert, Oriented Psychiatric: Yes: Alert, Oriented Labs: CBC, BMP 10/31/18 06:55 10/31/18 06:55 INR, PTT INR 1.12 (0.83-1.09) H 10/25/18 15:41 Problem List - Problems (1) Obesity Assessment/Plan: -RD consult Code(s): E66.9 - OBESITY, UNSPECIFIED (2) Anemia Assessment/Plan: -improved -Hematology on board -monitor daily Hg -received Venofer -Ferrous sulfate 1 tab po daily -Stool guaiac negative -Also seen by GI -Going for EGD+ colonoscopy today Code(s): D64.9 - ANEMIA, UNSPECIFIED Qualifiers: Anemia type: iron deficiency (3) Dizziness Assessment/Plan: -resolved -Cardiology consult -echo and carotid U/S reviewed Code(s): R42 - DIZZINESS AND GIDDINESS (4) Alcohol dependence with withdrawal, uncomplicated Assessment/Plan: -detox inpatient or outpatient upon discharge Code(s): F10.230 - ALCOHOL DEPENDENCE WITH WITHDRAWAL, UNCOMPLICATED (5) Pancytopenia Assessment/Plan: -improved -hematology on board -2/2 to alcohol use Code(s): D61.818 - OTHER PANCYTOPENIA (6) Hypokalemia Assessment/Plan: -resolved -KCl 40 meq BID -monitor trend Code(s): E87.6 - HYPOKALEMIA (7) Lymphedema Assessment/Plan: Seen by vascular surgery -DANIEL wrap BLLE -Lymphedema pump -Wound care f/u o/p Code(s): I89.0 - LYMPHEDEMA, NOT ELSEWHERE CLASSIFIED Assessment/Plan see problem list Received Hep B vaccine x 1
[2018-10-31] MEDS ORDERED: TETRACAINE/BENZOCAINE/BUTAMBEN 20 GM SPR TP ONE (13:12)
[2018-10-31] MEDS ORDERED: MIDAZOLAM HCL 2 MG/2 ML SINGLE DOSE VIAL ONE ×2 (13:13)
[2018-10-31] MEDS: POTASSIUM CHLORIDE TABS 20 MEQ TABLET.ER (FP) PO SCH ×2 (16:00→21:37)
[2018-10-31] MEDS: PANTOPRAZOLE 40 MG TABLET (FP) PO SCH (16:47)
[2018-11-01 07:50] LABS: BASO % 0.9 % (0-2.0); EOS % 6.7 % (0-4.5); HEMATOCRIT 29.9 % (35.4-49); HEMOGLOBIN 9.2 GM/dL (11.7-16.9); LYMPH % 22.1 % (8-40); MCH 22.6 pg (25.7-33.7); MCHC 30.8 g/dl (32.0-35.9); MEAN CELL VOLUME 73.6 fl (80-96); MEAN PLT VOLUME 8.5 fl (7.5-11.1); MONO % 17.6 % (3.8-10.2); NEUT % 52.7 % (42.8-82.8); RBC 4.06 M/mm3 (4.00-5.60); RDW 29.3 % (11.9-15.9); WHITE BLOOD COUNT 3.7 K/mm3 (4.0-10.0)
[2018-11-01 08:12] LABS: PLATELET COUNT 89 K/MM3 (134-434)
[2018-11-01 08:19] LABS: BLOOD UREA NITROGEN 11.6 mg/dL (7-18); CALCIUM 8.2 mg/dL (8.5-10.1); CREATININE 0.6 mg/dL (0.55-1.3); POTASSIUM 4.1 mmol/L (3.5-5.1)
[2018-11-01] MEDS ORDERED: FERROUS SO4 325 MG TABLET (FP) PO SCH (10:00)
[2018-11-01] MEDS ORDERED: FOLIC ACID 1 MG TABLET (FP) PO SCH (10:00)
[2018-11-01] MEDS ORDERED: THIAMINE HCL 100 MG TABLET (FP) PO SCH (10:00)
[2018-11-01] MEDS: POTASSIUM CHLORIDE TABS 20 MEQ TABLET.ER (FP) PO SCH (10:19)
[2018-11-01] MEDS: PANTOPRAZOLE 40 MG TABLET (FP) PO SCH (10:19)
[2018-11-01 11:31] LABS: ANISOCYTOSIS 2+; MACROCYTOSIS 0; OVALOCYTE 1+; PLATELET ESTIMATE DECREASED; TEAR DROP CELLS 1+
--- NOTE | 2018-11-01 13:36 | DS ---
Physical Examination Vital Signs: Vital Signs Temperature 99.6 F 11/01/18 09:15 Pulse Rate 97 H 11/01/18 09:15 Respiratory Rate 18 11/01/18 09:15 Blood Pressure 112/59 L 11/01/18 09:15 O2 Sat by Pulse Oximetry (%) 96 10/31/18 21:00 Constitutional: Yes: Calm Cardiovascular: Yes: Regular Rate and Rhythm, S1, S2 Respiratory: Yes: CTA Bilaterally Gastrointestinal: Yes: Normal Bowel Sounds, Soft Extremities: Yes: Other (lymphedema) Neurological: Yes: Alert, Oriented Labs: CBC, BMP 11/01/18 05:35 11/01/18 05:35 Discharge Summary Reason For Visit: ALCOHOL DEPENDENCE WITH UNCOMPLICATED WITHDRAWAL Current Active Problems Alcohol dependence with withdrawal, uncomplicated (Acute) Anemia (Acute) Dizziness (Acute) Gallstones (Acute) Hypokalemia (Acute) Lymphedema (Acute) Obesity (Acute) Pancytopenia (Acute) Pancytopenia (Acute) Other Procedures: egd small esophageal distal varices. gastric mucosa erosions. liver sono hepatospleenomegaly. echo left ventricle systolic fuunction normal 50% Hospital Course: Patient is a 38 year old male with a PMH of anemia (requiring transfusions) and chronic alcohol use who presents with lightheadedness. Patient reports that he has been binge drinking (more than 100 ounces per day) for the past month. He has been feeling increasingly lightheaded for one day, especially when he stands up. Lightheadedness lasts for about 10 min but improves when he sits down. He denies any associated chest pain, palpitations, SOB, dizziness, or vertigo. Patient also complains that he has been feeling fatigued and weak recently, consistent with his prior episodes of anemia. He endorses increased swelling and pain in his lower extremities. Pt denies any falls, hematochezia, easy bruising, or abnormal bleeding. Patient last drank several beers this morning. He denies any history of withdrawal seizures, hallucinations, or intubations, but does endorse tremors. Pt is interested in entering a detox program. ER course was notable for: (1) H/H: 7.6, 25.7 (2) Plt count: 35 (3) Pt started on 50mg librium Hospital course: patient completed librium protocol and was seen by heme, platelet count improved since patient has not been drinking alcohol seen by vascular for lymphedema to get pump as outpatient anemia got iv venofer and got prbc as well Condition: Fair - Instructions Diet, Activity, Other Instructions: follow up in wound care clinic with Dr Gilman for lymphedema pump. 'follow up at the primary care clinic take pantoprazole 40mg po daily Disposition: HOME - Home Medications Comprehensive Discharge Medication List: Ambulatory Orders Acetaminophen [Tylenol .Regular Strength -] 650 mg PO Q6H PRN #0 tablet Cephalexin Monohydrate [Keflex -] 500 mg PO Q6H 5 Days capsule 01/02/15 Ferrous Sulfate [Feosol] 325 mg PO DAILY 30 Days ud 01/02/15 Folic Acid - 1 mg PO DAILY 30 Days tablet 01/02/15 Furosemide [Lasix -] 20 mg PO DAILY #30 tablet 01/02/15 Multivitamins [Multivit ([facility] Formulary)] 1 tab PO DAILY 30 Days tab 01/02/15 Thiamine HCl [Vitamin B1 -] 100 mg PO DAILY 30 Days tablet 01/02/15 Cephalexin [Keflex] 500 mg PO BID #20 capsule 11/17/16
[2018-11-01 13:48] LABS: MAGNESIUM 2.2 mg/dL (1.8-2.4)
[2018-11-01] MEDS ORDERED: MAGNESIUM SULF 50% (8.12 MEQ/2 ML-1 GM VIAL) IVPB ONE (14:15)
[2018-11-01 15:10] VITALS: BP 140/87; PULSE 92; TEMP 98.7
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
[2018-11-01] MEDS ORDERED: IRON SUCROSE INJECTION 200 MG in SODIUM CHLORIDE 90 ML IVPB ONE (17:00)
--- NOTE | 2018-11-02 15:02 | PATH ---
Surgical Pathology Report Patient Name: JASIEL ARIAS Med. Rec. #: [id number] /Age/Gender: 1980 (Age: 38) / M Account: [id number] Location: [address] [place] [address] Taken: 10/31/2018 Received: 11/01/2018 Reported: 11/02/2018 Physicians: Zach Goel M.D. Specimen(s) Received ANTRUM Clinical History Chronic anemia Postoperative diagnosis: Portal gastropathy, erosive gastritis, esophageal varices, diverticulosis, hemorrhoids Final Diagnosis STOMACH, ANTRUM, BIOPSY: GASTRIC ANTRAL MUCOSA WITH MODERATE CHRONIC ACTIVE GASTRITIS. IMMUNOHISTOCHEMICAL STAIN FOR H. PYLORI IS NEGATIVE. Electronically Signed Magda Gamboa M.D. Gross Description Received in formalin, labeled "biopsy antrum" are 2 dsouza, irregular portions of soft tissue measuring 0.1 and 0.4 cm. in greatest dimension. The specimens are submitted in toto in one cassette. 11/01/2018 [facility]11/01/2018
== END 2018-11-01 16:18 | disposition home or self-care (01) | DRG 660 ==
LOC: JER 14:47 → JERBED 21:16 → J4W 10-26 01:27 → J5S 10-30 12:24
PROVIDERS: ADMIT Internal Medicine; ATTEND Family Medicine
PROC: 30233N1 Transfusion of Nonautologous Red Blood Cells into Peripheral Vein, Percutaneous Approach (ICD-10-PCS; principal; 2018-10-27)
PROC: 0DD68ZX Extraction of Stomach, Via Natural or Artificial Opening Endoscopic, Diagnostic (ICD-10-PCS; 2018-10-31)
PROC: 0DJD8ZZ Inspection of Lower Intestinal Tract, Via Natural or Artificial Opening Endoscopic (ICD-10-PCS; 2018-10-31)
PROC: 3E0234Z Introduction of Serum, Toxoid and Vaccine into Muscle, Percutaneous Approach (ICD-10-PCS; 2018-10-31)
DX: D61.818 Other pancytopenia (principal); F10.231 Alcohol dependence with withdrawal delirium; E46 Unspecified protein-calorie malnutrition; Z68.43 Body mass index [BMI] 50.0-59.9, adult; I85.00 Esophageal varices without bleeding; D69.59 Other secondary thrombocytopenia; E66.01 Morbid (severe) obesity due to excess calories; K76.0 Fatty (change of) liver, not elsewhere classified; K31.89 Other diseases of stomach and duodenum; Y90.8 Blood alcohol level of 240 mg/100 ml or more; E87.6 Hypokalemia; F10.230 Alcohol dependence with withdrawal, uncomplicated; D50.9 Iron deficiency anemia, unspecified; I89.0 Lymphedema, not elsewhere classified; K80.20 Calculus of gallbladder without cholecystitis without obstruction; Z87.891 Personal history of nicotine dependence; G47.00 Insomnia, unspecified; R16.1 Splenomegaly, not elsewhere classified; K57.30 Diverticulosis of large intestine without perforation or abscess without bleeding; K64.8 Other hemorrhoids
CPT/HCPCS: 36415; 36430; 36511; 70450-TC; 76700-TC; 80048; 80053; 80061; 80074; 80307; 81003; 82272; 82378; 82550; 82553; 82607; 82728; 82746; 82784; 83010; 83036; 83516; 83540; 83550; 83615; 83721; 83735; 84100; 84443; 84484; 85025; 85044; 85610; 86317; 86850; 86900; 86901; 86922; 87177; 87205; 87209; 87324; 87389; 87449; 88305-TC; 93005; 93010; 93306-TC; 93880-TC; 93970-TC; 97116-GP; 97161-GP; 99284-25; J1756; J7030; P9021; P9038; P9058

== ENCOUNTER 2019-03-12 13:02 | Emergency (ER) | payer OTHER ==
[2019-03-12 13:10] VITALS: TEMP 98; BMI 45.6
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
[2019-03-12] MEDS ORDERED: FOLIC ACID INJECTION - 1 MG, THIAMINE HCL 100 MG, MULTIVIT INJECTION ADULT 10 ML in SOD... IVPB ONE (14:56)
[2019-03-12 16:07] LABS: HEMATOCRIT 34.5 % (35.4-49); HEMOGLOBIN 11.2 GM/dL (11.7-16.9); MCH 26.3 pg (25.7-33.7); MCHC 32.4 g/dl (32.0-35.9); MEAN CELL VOLUME 81.1 fl (80-96); PLATELET COUNT 64 K/MM3 (134-434); RBC 4.26 M/mm3 (4.00-5.60); RDW 16.4 % (11.9-15.9); WHITE BLOOD COUNT 4.4 K/mm3 (4.0-10.0)
[2019-03-12 16:49] LABS: ALK PHOS 180 U/L (45-117); ANION GAP 9 MMOL/L (8-16); BILIRUBIN,TOTAL 0.8 mg/dL (0.2-1); BLOOD UREA NITROGEN 5.5 mg/dL (7-18); CALCIUM 8.6 mg/dL (8.5-10.1); CHLORIDE 109 mmol/L (98-107); CO2 24 mmol/L (21-32); CREATININE 0.5 mg/dL (0.55-1.3); GLUCOSE,RANDOM 96 mg/dL (74-106); POTASSIUM 3.6 mmol/L (3.5-5.1); SGOT/AST 121 U/L (15-37); SGPT/ALT 74 U/L (13-61); SODIUM 142 mmol/L (136-145); TOT PROT 8.5 g/dl (6.4-8.2)
[2019-03-12] MEDS ORDERED: chlordiazePOXIDE HCL 25 MG CAPSULE PO ONE (18:20)
[2019-03-12 19:12] VITALS: BP 120/74; PULSE 97
[2019-03-12] MEDS ORDERED: chlordiazePOXIDE HCL 25 MG CAPSULE ONE (19:23)
--- NOTE | 2019-03-13 12:26 | EKG ---
Test Reason : Blood Pressure : / mmHG Vent. Rate : 093 BPM Atrial Rate : 093 BPM P-R Int : 190 ms QRS Dur : 116 ms QT Int : 384 ms P-R-T Axes : 026 -17 024 degrees QTc Int : 477 ms NORMAL SINUS RHYTHM NORMAL ECG WHEN COMPARED WITH ECG OF 25-OCT-2018 18:14, NO SIGNIFICANT CHANGE WAS FOUND Confirmed by YUAN MOSELEY MD ([id number]) on 03/13/2019 12:26:24 PM Referred By: Confirmed By:YUAN MOSELEY MD
--- NOTE | 2019-03-13 16:45 | PDOC ---
Documentation entered by Rajiv Lake SCRIBE, acting as scribe for Kenneth Wakefield MD. Kenneth Wakefield MD: This documentation has been prepared by the Aleksandra guevara Nirvannie, SCRIBE, under my direction and personally reviewed by me in its entirety. I confirm that the documentation accurately reflects all work, treatment, procedures, and medical decision making performed by me. Attending Attestation - Resident Resident Name: Bryce Villafuerte - ED Attending Attestation I have performed the following: I have examined & evaluated the patient, The case was reviewed & discussed with the resident, I agree w/resident's findings & plan, Exceptions are as noted - HPI HPI: 03/12/19 16:17 The patient is a 39 year old male, with a significant past medical history of alcohol abuse, anemia (requiring transfusions), who presents to the emergency department with now resolved sternal chest pain, nausea and 1 episode of emesis. Pt reports chest pain began while he was resting 2 days ago and describes the pain as a sensation of his heart beating heavily. He states the symptoms last for a few seconds at a time. DEnies associated dizziness, SOB, diaphoresis, pre-syncope, headache. He also notes one episodes of NBNB emesis this morning after he tried to eat something. Pt admits to drinking 9 beers today, last 1 hour ago. Patient endorses drinking excessively since detox 2 months ago and would like to go back to detox today. DEnies drug use. He denies any recent fevers or chills. He denies any recent diarrhea or constipation. He denies any recent dysuria, frequency, urgency or hematuria. Denies focal weakness/numbness. Allergies: NKDA Primary Care Physician: Dr. Wong - Physicial Exam PE: 03/13/19 16:39 GENERAL: Awake, alert, and fully oriented, in no acute distress HEAD: No signs of trauma EYES: PERRLA, EOMI, sclera anicteric, conjunctiva clear ENT: Auricles normal inspection, hearing grossly normal, nares patent, oropharynx clear without exudates. Moist mucosa NECK: Normal ROM, supple, no lymphadenopathy, JVD, or masses LUNGS: Breath sounds equal, clear to auscultation bilaterally. No wheezes, and no crackles HEART: Regular rate and rhythm, normal S1 and S2, no murmurs, rubs or gallops ABDOMEN: Soft, nontender, normoactive bowel sounds. No guarding, no rebound. No masses EXTREMITIES: Normal range of motion, no edema. No clubbing or cyanosis. No cords , erythema, or tenderness BACK: No midline spinal tenderness in cervical/thoracic/lumbar region NEUROLOGICAL: Normal speech, cranial nerves intact, negative pronator drift, 5/ 5 strength in all 4 extremities, normal sensation to light touch in all 4 extremities, normal cerebellar exam, normal gait, normal reflexes and tone SKIN: Warm, Dry, normal turgor, no rashes or lesions noted. - Medical Decision Making 03/12/19 16:39 39yo M hx etoh abuse presents to the ED with CP described as palpitations as well as N/V Pt endorses daily drinking, 6-12 pack beer/day EKG non ischemic, labs wnl CXR clear No CP in ED, pt tolerating PO He is clinically stable for DC to [facility] for detox I discussed the physical exam findings, ancillary test results and final diagnoses with the patient. I answered all of the patient's questions. The patient was satisfied with the care received and felt comfortable with the discharge plan and treatment plan. The patient will call their primary care physician within 24 hours to arrange follow-up and will return to the Emergency Department with any new, persistent or worsening symptoms. Heart Score/ECG Review #1 03/13/19 16:44 EKG read and int by me: NSR, rate 93. Normal axis and intervals. No NADIRA or TWI.
== END 2019-03-12 19:25 | disposition home or self-care (01) ==
LOC: JER 13:02
PROC: 3E033GC Introduction of Other Therapeutic Substance into Peripheral Vein, Percutaneous Approach (ICD-10-PCS; principal; 2019-03-12)
DX: F10.20 Alcohol dependence, uncomplicated (principal); F10.239 Alcohol dependence with withdrawal, unspecified; D64.9 Anemia, unspecified
CPT/HCPCS: 36415; 71045-TC-FY; 80053; 84484; 85027; 93005; 93010; 99284-25; J7030

== ENCOUNTER 2021-09-28 18:28 | Emergency (ER) | payer OTHER ==
[2021-09-28 19:06] VITALS: BP 111/69; PULSE 91; TEMP 98.2; BMI 45.4
== END 2021-09-28 22:28 | disposition left against medical advice (07) ==
LOC: JER 18:28
DX: R22.42 Localized swelling, mass and lump, left lower limb (principal)
CPT/HCPCS: 99281-25

== ENCOUNTER 2022-05-03 15:37 | Inpatient (IN) | payer OTHER ==
[2022-05-03] MEDS ORDERED: IBUPROFEN 600 MG TABLET (FP) PO PRN (17:39)
[2022-05-03] MEDS ORDERED: chlordiazePOXIDE HCL 25 MG CAPSULE PO PRN (17:39)
[2022-05-03] MEDS ORDERED: ACETAMINOPHEN 325 MG TABLET (FP) PO PRN ×2 (17:39)
[2022-05-03] MEDS ORDERED: POLYETHYLENE GLYCOL (HEALTHYLAX) 3350 17 GM PACKET PO PRN (17:39)
[2022-05-03] MEDS ORDERED: LOPERAMIDE HCL 2 MG CAPSULE PO PRN (17:39)
[2022-05-03] MEDS ORDERED: MAG HYDROX/AL HYDROX/SIMETH 30 ML UNIT-DOSE CUP PO PRN (17:39)
[2022-05-03] MEDS ORDERED: IBUPROFEN 400 MG TABLET (FP) PO PRN (17:39)
[2022-05-03] MEDS ORDERED: MAGNESIUM HYDROX 2400MG/30ML ORAL SUSPENSION 30 ML CUP PO PRN (17:39)
[2022-05-03] MEDS ORDERED: ONDANSETRON *ODT* 4 MG TABLET SL PRN (17:39)
[2022-05-03] MEDS ORDERED: BISMUTH SUBSALICYLATE 524 MG/30 ML PO PRN (17:39)
[2022-05-03] MEDS ORDERED: DICYCLOMINE HCL 10 MG CAPSULE PO PRN (17:39)
[2022-05-03] MEDS ORDERED: P-EPHED 60MG/TRIPROLIDI 2.5MG TABLET PO PRN (17:39)
[2022-05-03] MEDS ORDERED: NALOXONE HCL (KLOXXADO) 8 MG SPRAY NS PRN (17:39)
[2022-05-03] MEDS ORDERED: guaiFENesin 200 MG/10 ML 10 ML UNIT-DOSE CUPS PO PRN (17:39)
[2022-05-03] MEDS ORDERED: BENZOCAINE/MENTHOL (CHLORASEPTIC ) LOZENGE MM PRN (17:39)
[2022-05-03 17:52] VITALS: BMI 50.5
[2022-05-03] MEDS: hydrOXYzine PAMOATE 25 MG CAPSULE (FP) PO PRN (18:45)
[2022-05-03] MEDS: MELATONIN 5 MG TABLETS PO SCH (22:49)
[2022-05-03] MEDS: METHOCARBAMOL 500 MG TABLET PO PRN (22:49)
[2022-05-03] MEDS: chlordiazePOXIDE HCL 25 MG CAPSULE PO SCH (22:49)
[2022-05-03] MEDS: THIAMINE HCL 100 MG TABLET (FP) PO SCH (22:50)
[2022-05-04] MEDS: chlordiazePOXIDE HCL 25 MG CAPSULE PO SCH ×2 (05:17→10:06)
[2022-05-04] MEDS: PRENATAL VITAMINS W/ FOLIC ACID TABLET (FP) PO SCH (10:06)
[2022-05-04 10:46] LABS: HEMATOCRIT 30.6 % (35.4-49); HEMOGLOBIN 10.3 GM/dL (11.7-16.9); MCH 29.4 pg (25.7-33.7); MCHC 33.7 g/dl (32.0-35.9); MEAN PLT VOLUME 8.6 fl (7.5-11.1); RBC 3.51 M/mm3 (4.00-5.60); RDW 16.3 % (11.9-15.9)
[2022-05-04 10:55] LABS: PLATELET COUNT 27 10^3/uL (134-434); WHITE BLOOD COUNT 1.2 K/mm3 (4.0-10.0)
[2022-05-04 11:30] LABS: ALBUMIN 2.8 g/dl (3.4-5.0); BLOOD UREA NITROGEN 7.2 mg/dL (7-18); CALCIUM 8.2 mg/dL (8.5-10.1)
[2022-05-04 11:33] LABS: CREATININE 0.4 mg/dL (0.55-1.3); TOT PROT 6.4 g/dl (6.4-8.2)
[2022-05-04 11:35] LABS: BILIRUBIN,TOTAL 1.7 mg/dL (0.2-1)
[2022-05-04] MEDS ORDERED: LORazepam 1 MG TABLET PO PRN (12:51)
[2022-05-04] MEDS: LORazepam 2 MG TABLET PO SCH ×3 (13:27→22:32)
[2022-05-04] MEDS: METHOCARBAMOL 500 MG TABLET PO PRN (22:31)
[2022-05-04] MEDS: MELATONIN 5 MG TABLETS PO SCH (22:31)
[2022-05-04] MEDS: THIAMINE HCL 100 MG TABLET (FP) PO SCH (22:31)
[2022-05-05] MEDS ORDERED: chlordiazePOXIDE HCL 25 MG CAPSULE PO SCH (05:00)
[2022-05-05] MEDS: LORazepam 1 MG TABLET PO SCH ×4 (05:39→22:27)
[2022-05-05] MEDS: PRENATAL VITAMINS W/ FOLIC ACID TABLET (FP) PO SCH (10:17)
[2022-05-05 13:51] LABS: HEMATOCRIT 33.6 % (35.4-49); HEMOGLOBIN 11.3 GM/dL (11.7-16.9); MCH 29.6 pg (25.7-33.7); MCHC 33.7 g/dl (32.0-35.9); MEAN CELL VOLUME 87.8 fl (80-96); MEAN PLT VOLUME 8.5 fl (7.5-11.1); RBC 3.82 M/mm3 (4.00-5.60); RDW 16.5 % (11.9-15.9)
[2022-05-05 14:00] LABS: PLATELET COUNT 31 10^3/uL (134-434); WHITE BLOOD COUNT 1.4 K/mm3 (4.0-10.0)
[2022-05-05 14:02] LABS: INR 1.53 (0.83-1.09); PROTHROMBIN TIME (PATIENT) 17.7 SEC (9.7-13.0)
[2022-05-05 14:49] LABS: CALCIUM 8.4 mg/dL (8.5-10.1)
[2022-05-05 14:50] LABS: ALBUMIN 3.1 g/dl (3.4-5.0); BLOOD UREA NITROGEN 7.4 mg/dL (7-18)
[2022-05-05 14:53] LABS: BILIRUBIN,DIRECT 0.9 mg/dL (0.0-0.2); CREATININE 0.4 mg/dL (0.55-1.3)
[2022-05-05 14:54] LABS: BILIRUBIN,TOTAL 2.8 mg/dL (0.2-1); TOT PROT 6.7 g/dl (6.4-8.2)
[2022-05-05] MEDS: POTASSIUM CHLORIDE ORAL LIQUID 20 MEQ/15 ML PO ONE ×2 (19:38→19:40)
[2022-05-05] MEDS ORDERED: POTASSIUM CHLORIDE ORAL LIQUID 20 MEQ/15 ML PO ONE (19:45)
[2022-05-05] MEDS: METHOCARBAMOL 500 MG TABLET PO PRN (22:26)
[2022-05-05] MEDS: MELATONIN 5 MG TABLETS PO SCH (22:26)
[2022-05-05] MEDS: THIAMINE HCL 100 MG TABLET (FP) PO SCH (22:26)
[2022-05-05] MEDS: LACTULOSE 20 GM/30 ML UDC (FOR ORAL USE ONLY) PO SCH (22:26)
[2022-05-06] MEDS ORDERED: LORazepam 0.5 MG TABLET PO PRN
[2022-05-06] MEDS ORDERED: chlordiazePOXIDE HCL 10 MG CAPSULE PO PRN
[2022-05-06] MEDS ORDERED: chlordiazePOXIDE HCL 10 MG CAPSULE PO SCH (05:00)
[2022-05-06] MEDS: LORazepam 0.5 MG TABLET PO SCH ×4 (05:50→22:00)
[2022-05-06] MEDS: PRENATAL VITAMINS W/ FOLIC ACID TABLET (FP) PO SCH (10:20)
[2022-05-06] MEDS: LACTULOSE 20 GM/30 ML UDC (FOR ORAL USE ONLY) PO SCH ×4 (10:21→22:00)
[2022-05-06 17:09] VITALS: RESP 18
[2022-05-06] MEDS: MELATONIN 5 MG TABLETS PO SCH (22:00)
[2022-05-06] MEDS: hydrOXYzine PAMOATE 25 MG CAPSULE (FP) PO PRN (22:00)
[2022-05-06] MEDS: THIAMINE HCL 100 MG TABLET (FP) PO SCH (22:00)
[2022-05-07] MEDS ORDERED: LORazepam 0.5 MG TABLET PO ONE (05:00)
[2022-05-07] MEDS ORDERED: chlordiazePOXIDE HCL 10 MG CAPSULE PO SCH (05:00)
[2022-05-07] MEDS: PRENATAL VITAMINS W/ FOLIC ACID TABLET (FP) PO SCH (10:02)
[2022-05-07] MEDS: LACTULOSE 20 GM/30 ML UDC (FOR ORAL USE ONLY) PO SCH ×4 (10:02→22:04)
[2022-05-07] MEDS: MELATONIN 5 MG TABLETS PO SCH (22:05)
[2022-05-07] MEDS: THIAMINE HCL 100 MG TABLET (FP) PO SCH (22:05)
[2022-05-08] MEDS ORDERED: chlordiazePOXIDE HCL 10 MG CAPSULE PO ONE (05:00)
[2022-05-08] MEDS: METHOCARBAMOL 500 MG TABLET PO PRN (06:00)
[2022-05-08] MEDS: PRENATAL VITAMINS W/ FOLIC ACID TABLET (FP) PO SCH (09:20)
[2022-05-08] MEDS: LACTULOSE 20 GM/30 ML UDC (FOR ORAL USE ONLY) PO SCH (09:20)
[2022-05-08 09:58] VITALS: BP 149/93; PULSE 100; TEMP 97.8
== END 2022-05-08 09:27 | disposition home or self-care (01) | DRG 775 ==
LOC: YASAS 15:37 → Y3N 17:56
PROVIDERS: ADMIT Allergy & Immunology; ATTEND Surgery
PROC: HZ2ZZZZ Detoxification Services for Substance Abuse Treatment (ICD-10-PCS; principal; 2022-05-03)
DX: F10.230 Alcohol dependence with withdrawal, uncomplicated (principal); E72.20 Disorder of urea cycle metabolism, unspecified; E87.6 Hypokalemia; D50.9 Iron deficiency anemia, unspecified; I89.0 Lymphedema, not elsewhere classified; K21.9 Gastro-esophageal reflux disease without esophagitis; K70.9 Alcoholic liver disease, unspecified; R79.89 Other specified abnormal findings of blood chemistry; E66.01 Morbid (severe) obesity due to excess calories; Z68.43 Body mass index [BMI] 50.0-59.9, adult; Z87.19 Personal history of other diseases of the digestive system
CPT/HCPCS: 36415; 80053; 82140; 82248; 84132; 85027; 85610; 86780; C9803-CS; G0396; U0003; U0005

== ENCOUNTER 2022-11-11 18:40 | Inpatient (IN) | payer OTHER ==
[2022-11-11] MEDS ORDERED: VANCOMYCIN 1 GM PREMIX - 1 GM/200 ML BAG IVPB ONE (20:07)
[2022-11-11] MEDS ORDERED: chlordiazePOXIDE HCL 25 MG CAPSULE PO ONE (20:07)
[2022-11-11] MEDS ORDERED: chlordiazePOXIDE HCL 25 MG CAPSULE ONE (21:11)
[2022-11-11] MEDS ORDERED: CEFTRIAXONE 1 GM/50 ML BAG ONE (21:12)
[2022-11-11 21:25] LABS: BASO % 0.1 % (0-2.0); EOS % 2.6 % (0-4.5); HEMATOCRIT 35.2 % (35.4-49); HEMOGLOBIN 12.2 GM/dL (11.7-16.9); LYMPH % 11.2 % (8-40); MCH 30.9 pg (25.7-33.7); MCHC 34.6 g/dl (32.0-35.9); MEAN CELL VOLUME 89.3 fl (80-96); MEAN PLT VOLUME 8.6 fl (7.5-11.1); MONO % 8.9 % (3.8-10.2); NEUT % 77.2 % (42.8-82.8); RBC 3.94 M/mm3 (4.00-5.60); RDW 15.7 % (11.9-15.9); WHITE BLOOD COUNT 2.6 K/mm3 (4.0-10.0)
[2022-11-11 21:43] LABS: POTASSIUM 3.4 mmol/L (3.5-5.1)
[2022-11-11 21:45] LABS: ALBUMIN 3.2 g/dl (3.4-5.0); CALCIUM 8.1 mg/dL (8.5-10.1); MAGNESIUM 1.7 mg/dL (1.8-2.4)
[2022-11-11 21:48] LABS: CREATININE 0.6 mg/dL (0.55-1.3)
[2022-11-11 21:50] LABS: BILIRUBIN,TOTAL 2.1 mg/dL (0.2-1); TOT PROT 7.3 g/dl (6.4-8.2)
[2022-11-11 22:03] LABS: PLATELET COUNT 24 10^3/uL (134-434)
[2022-11-11] MEDS ORDERED: POTASSIUM CHLORIDE ORAL LIQUID 20 MEQ/15 ML PO ONE (22:08)
[2022-11-11] MEDS ORDERED: MAGNESIUM SULF 50% (8.12 MEQ/2 ML-1 GM VIAL) IVPB ONE (22:08)
[2022-11-11] MEDS ORDERED: VANCOMYCIN 1 GRAM (PRE-DOCKED) 1,000 MG/250 ML BAG IVPB ONE (22:10)
[2022-11-11] MEDS ORDERED: MAGNESIUM 1GM/D5W - 1 GM/100 ML IVPB IVPB ONE (22:22)
[2022-11-11] MEDS ORDERED: POTASSIUM CHLORIDE ORAL LIQUID 20 MEQ/15 ML ONE (22:22)
[2022-11-11] MEDS ORDERED: FOLIC ACID 1 MG TABLET (FP) PO ONE (22:22)
[2022-11-11] MEDS ORDERED: THIAMINE HCL 200 MG/2 ML VIAL IVPB ONE (22:22)
[2022-11-11 22:31] LABS: ERYTHROCYTE SEDIMENTATION RATE 30 mm/hr (0-10)
[2022-11-11] MEDS ORDERED: FOLIC ACID 1 MG TABLET (FP) ONE (22:36)
[2022-11-11] MEDS ORDERED: THIAMINE HCL 200 MG/2 ML VIAL ONE (22:36)
[2022-11-11] MEDS ORDERED: DOCUSATE SODIUM 100 MG CAPSULE (FP) PO PRN (23:30)
[2022-11-12] MEDS ORDERED: chlordiazePOXIDE HCL 25 MG CAPSULE PO ONE (02:57)
[2022-11-12] MEDS ORDERED: KETOROLAC TROMETHAMINE 15 MG/ML VIAL IVPUSH ONE (05:08)
[2022-11-12] MEDS ORDERED: chlordiazePOXIDE HCL 25 MG CAPSULE PO PRN (07:00)
[2022-11-12] MEDS: FOLIC ACID 1 MG TABLET (FP) PO SCH (09:54)
[2022-11-12] MEDS: FUROSEMIDE 40 MG TABLET (FP) PO SCH (09:54)
[2022-11-12] MEDS: SPIRONOLACTONE 25 MG TABLET PO SCH (09:54)
[2022-11-12] MEDS: chlordiazePOXIDE HCL 25 MG CAPSULE PO SCH ×4 (09:55→23:09)
[2022-11-12] MEDS: THIAMINE HCL 100 MG TABLET (FP) PO SCH (09:56)
[2022-11-12] MEDS: MULTIVITAMINS (DAILY MVI) TABLET (FP) PO SCH (09:56)
[2022-11-12] MEDS ORDERED: VANCOMYCIN HCL 1,500 MG in DEXTROSE 5%-WATER - 250 ML IVPB SCH (10:00)
[2022-11-12 10:22] LABS: BASO % 0.4 % (0-2.0); EOS % 2.5 % (0-4.5); HEMATOCRIT 35.7 % (35.4-49); HEMOGLOBIN 11.9 GM/dL (11.7-16.9); LYMPH % 18.1 % (8-40); MCH 30.4 pg (25.7-33.7); MCHC 33.5 g/dl (32.0-35.9); MEAN CELL VOLUME 90.8 fl (80-96); MEAN PLT VOLUME 9.9 fl (7.5-11.1); MONO % 11.4 % (3.8-10.2); NEUT % 67.6 % (42.8-82.8); RBC 3.93 M/mm3 (4.00-5.60); RDW 15.7 % (11.9-15.9); WHITE BLOOD COUNT 2.7 K/mm3 (4.0-10.0)
[2022-11-12 10:25] LABS: INR 1.38 (0.83-1.09)
[2022-11-12 10:27] LABS: ACTIVATED PTT 32.9 SECONDS (25.2-36.5)
[2022-11-12 10:38] LABS: POTASSIUM 3.9 mmol/L (3.5-5.1)
[2022-11-12 10:43] LABS: BLOOD UREA NITROGEN 8.1 mg/dL (7-18)
[2022-11-12 10:44] LABS: ALBUMIN 3.1 g/dl (3.4-5.0); CALCIUM 8.3 mg/dL (8.5-10.1); MAGNESIUM 1.6 mg/dL (1.8-2.4)
[2022-11-12 10:46] LABS: CREATININE 0.6 mg/dL (0.55-1.3); PHOSPHOROUS 2.2 mg/dL (2.5-4.9)
[2022-11-12 10:48] LABS: BILIRUBIN,TOTAL 2.4 mg/dL (0.2-1); TOT PROT 7.3 g/dl (6.4-8.2)
[2022-11-12 11:03] LABS: PLATELET COUNT 27 10^3/uL (134-434)
[2022-11-12] MEDS: VANCOMYCIN PREMIX 1.5 GM 1,500 MG/300 ML BAG IVPB SCH ×2 (12:51→23:09)
[2022-11-12] MEDS: CEFTRIAXONE 1 GM in DEXTROSE 5%-WATER - 50 ML IVPB SCH (23:09)
[2022-11-13] MEDS: chlordiazePOXIDE HCL 25 MG CAPSULE PO SCH ×4 (05:40→22:32)
[2022-11-13 09:17] LABS: BASO % 0.2 % (0-2.0); EOS % 5.2 % (0-4.5); HEMATOCRIT 31.8 % (35.4-49); HEMOGLOBIN 10.9 GM/dL (11.7-16.9); MCH 30.5 pg (25.7-33.7); MCHC 34.2 g/dl (32.0-35.9); MEAN CELL VOLUME 89.3 fl (80-96); MEAN PLT VOLUME 8.6 fl (7.5-11.1); MONO % 14.5 % (3.8-10.2); NEUT % 57.1 % (42.8-82.8); RBC 3.56 M/mm3 (4.00-5.60); RDW 15.7 % (11.9-15.9)
[2022-11-13 09:26] LABS: PLATELET COUNT 27 10^3/uL (134-434); WHITE BLOOD COUNT 1.9 K/mm3 (4.0-10.0)
[2022-11-13 10:03] LABS: ANISOCYTOSIS 0; HELMET CELLS 0; HOWELL-JOLLY BODIES 0; MACROCYTOSIS 0; OVALOCYTE 0; ROULEAU 0; SICKELED CELLS 0; TARGET CELLS 0; TEAR DROP CELLS 0; TOXIC GRANULATION 0
[2022-11-13] MEDS: MULTIVITAMINS (DAILY MVI) TABLET (FP) PO SCH (10:19)
[2022-11-13] MEDS: FUROSEMIDE 40 MG TABLET (FP) PO SCH (10:20)
[2022-11-13] MEDS: FOLIC ACID 1 MG TABLET (FP) PO SCH (10:20)
[2022-11-13] MEDS: SPIRONOLACTONE 25 MG TABLET PO SCH (10:20)
[2022-11-13] MEDS: THIAMINE HCL 100 MG TABLET (FP) PO SCH (10:20)
[2022-11-13] MEDS: CEFTRIAXONE 1 GM in DEXTROSE 5%-WATER - 50 ML IVPB SCH (22:32)
[2022-11-14] MEDS ORDERED: chlordiazePOXIDE HCL 10 MG CAPSULE PO PRN
[2022-11-14] MEDS: chlordiazePOXIDE HCL 10 MG CAPSULE PO SCH ×4 (05:48→23:04)
[2022-11-14 10:05] LABS: BASO % 0.4 % (0-2.0); EOS % 5.1 % (0-4.5); HEMATOCRIT 36.7 % (35.4-49); HEMOGLOBIN 12.4 GM/dL (11.7-16.9); LYMPH % 20.2 % (8-40); MCH 30.2 pg (25.7-33.7); MCHC 33.9 g/dl (32.0-35.9); MEAN PLT VOLUME 8.4 fl (7.5-11.1); MONO % 12.8 % (3.8-10.2); NEUT % 61.5 % (42.8-82.8); PLATELET COUNT 42 10^3/uL (134-434); RBC 4.12 M/mm3 (4.00-5.60); RDW 15.9 % (11.9-15.9); RETICULOCYTES 2.56 % (0.5-1.5); WHITE BLOOD COUNT 2.1 K/mm3 (4.0-10.0)
[2022-11-14 10:19] LABS: POTASSIUM 3.4 mmol/L (3.5-5.1)
[2022-11-14 10:22] LABS: BLOOD UREA NITROGEN 8.6 mg/dL (7-18); CALCIUM 8.3 mg/dL (8.5-10.1)
[2022-11-14 10:23] LABS: ALBUMIN 3.2 g/dl (3.4-5.0)
[2022-11-14 10:25] LABS: CREATININE 0.6 mg/dL (0.55-1.3)
[2022-11-14 10:26] LABS: BILIRUBIN,DIRECT 0.9 mg/dL (0.0-0.2)
[2022-11-14 10:27] LABS: BILIRUBIN,TOTAL 2.2 mg/dL (0.2-1); TOT PROT 7.4 g/dl (6.4-8.2)
[2022-11-14] MEDS ORDERED: POTASSIUM CHLORIDE TABS 20 MEQ TABLET.ER (FP) PO ONE (10:38)
[2022-11-14] MEDS: MULTIVITAMINS (DAILY MVI) TABLET (FP) PO SCH (11:25)
[2022-11-14] MEDS: FOLIC ACID 1 MG TABLET (FP) PO SCH (11:25)
[2022-11-14] MEDS: THIAMINE HCL 100 MG TABLET (FP) PO SCH (11:25)
[2022-11-14] MEDS: FUROSEMIDE 40 MG TABLET (FP) PO SCH (11:26)
[2022-11-14] MEDS: SPIRONOLACTONE 25 MG TABLET PO SCH (11:26)
[2022-11-14] MEDS: VANCOMYCIN PREMIX 1.5 GM 1,500 MG/300 ML BAG IVPB SCH (17:17)
[2022-11-14] MEDS: CEFTRIAXONE 1 GM in DEXTROSE 5%-WATER - 50 ML IVPB SCH (22:59)
[2022-11-15] MEDS: chlordiazePOXIDE HCL 10 MG CAPSULE PO SCH ×2 (06:35→17:34)
[2022-11-15] MEDS ORDERED: NAFCILLIN - 2 GM in DEXTROSE 5%-WATER - 100 ML IVPB SCH (10:00)
[2022-11-15] MEDS ORDERED: NAFCILLIN NA 2 GM VIAL IVPB ONE ×2 (10:16→13:28)
[2022-11-15] MEDS: FOLIC ACID 1 MG TABLET (FP) PO SCH (10:41)
[2022-11-15] MEDS: SPIRONOLACTONE 25 MG TABLET PO SCH (10:41)
[2022-11-15] MEDS: FUROSEMIDE 40 MG TABLET (FP) PO SCH (10:41)
[2022-11-15] MEDS: MULTIVITAMINS (DAILY MVI) TABLET (FP) PO SCH (10:41)
[2022-11-15] MEDS: NAFCILLIN - 2 GM in DEXTROSE 5%-WATER 100 ML IVPB SCH ×4 (10:41→21:50)
[2022-11-15] MEDS: THIAMINE HCL 100 MG TABLET (FP) PO SCH (10:41)
[2022-11-15 11:21] LABS: HEMATOCRIT 39.1 % (35.4-49); HEMOGLOBIN 13.1 GM/dL (11.7-16.9); MCH 30.2 pg (25.7-33.7); MCHC 33.5 g/dl (32.0-35.9); MEAN CELL VOLUME 89.9 fl (80-96); MEAN PLT VOLUME 8.3 fl (7.5-11.1); PLATELET COUNT 57 10^3/uL (134-434); RBC 4.35 M/mm3 (4.00-5.60); RDW 16.1 % (11.9-15.9); WHITE BLOOD COUNT 2.9 K/mm3 (4.0-10.0)
[2022-11-15 11:40] LABS: POTASSIUM 3.7 mmol/L (3.5-5.1)
[2022-11-15 12:06] LABS: BLOOD UREA NITROGEN 12.6 mg/dL (7-18); CALCIUM 9.1 mg/dL (8.5-10.1); MAGNESIUM 1.4 mg/dL (1.8-2.4)
[2022-11-15 12:09] LABS: CREATININE 0.6 mg/dL (0.55-1.3); PHOSPHOROUS 4.4 mg/dL (2.5-4.9)
[2022-11-15 13:55] LABS: HIV INTERPRETATION NEGATIVE (NEGATIVE)
[2022-11-16] MEDS: NAFCILLIN - 2 GM in DEXTROSE 5%-WATER 100 ML IVPB SCH ×6 (01:56→21:51)
[2022-11-16] MEDS ORDERED: NAFCILLIN NA 2 GM VIAL IVPB ONE ×2 (03:41→21:25)
[2022-11-16] MEDS ORDERED: chlordiazePOXIDE HCL 10 MG CAPSULE PO ONE (05:00)
[2022-11-16] MEDS: VANCOMYCIN PREMIX 1.5 GM 1,500 MG/300 ML BAG IVPB SCH (08:41)
[2022-11-16] MEDS: FUROSEMIDE 40 MG TABLET (FP) PO SCH (09:32)
[2022-11-16] MEDS: SPIRONOLACTONE 25 MG TABLET PO SCH (09:32)
[2022-11-16] MEDS: THIAMINE HCL 100 MG TABLET (FP) PO SCH (09:32)
[2022-11-16] MEDS: FOLIC ACID 1 MG TABLET (FP) PO SCH (09:32)
[2022-11-16] MEDS: MULTIVITAMINS (DAILY MVI) TABLET (FP) PO SCH (09:32)
[2022-11-16] MEDS ORDERED: MAGNESIUM 2GM/50ML STERILE WATER IVPB IVPB ONE (12:49)
[2022-11-16] MEDS: COLLAGENASE CLOSTRIDIUM HIST. 30 GRAMS TUBE TP SCH (13:04)
[2022-11-16 14:39] VITALS: BMI 48.9
[2022-11-17] MEDS: NAFCILLIN - 2 GM in DEXTROSE 5%-WATER 100 ML IVPB SCH ×6 (02:01→23:02)
[2022-11-17] MEDS ORDERED: NAFCILLIN NA 2 GM VIAL IVPB ONE (05:28)
[2022-11-17] MEDS: SPIRONOLACTONE 25 MG TABLET PO SCH (09:49)
[2022-11-17] MEDS: FOLIC ACID 1 MG TABLET (FP) PO SCH (09:49)
[2022-11-17] MEDS: FUROSEMIDE 40 MG TABLET (FP) PO SCH (09:49)
[2022-11-17] MEDS: THIAMINE HCL 100 MG TABLET (FP) PO SCH (09:50)
[2022-11-17] MEDS: MULTIVITAMINS (DAILY MVI) TABLET (FP) PO SCH (09:50)
[2022-11-17 12:01] LABS: BASO % 0.6 % (0-2.0); EOS % 3.8 % (0-4.5); HEMATOCRIT 38.4 % (35.4-49); HEMOGLOBIN 13.3 GM/dL (11.7-16.9); LYMPH % 18.9 % (8-40); MCH 31.1 pg (25.7-33.7); MCHC 34.6 g/dl (32.0-35.9); MEAN PLT VOLUME 8.5 fl (7.5-11.1); MONO % 13.4 % (3.8-10.2); NEUT % 63.3 % (42.8-82.8); PLATELET COUNT 79 10^3/uL (134-434); RBC 4.26 M/mm3 (4.00-5.60); RDW 15.6 % (11.9-15.9); WHITE BLOOD COUNT 3.6 K/mm3 (4.0-10.0)
[2022-11-17] MEDS: MAGNESIUM OXIDE 400 MG TABLET (FP) PO SCH (12:16)
[2022-11-17] MEDS: COLLAGENASE CLOSTRIDIUM HIST. 30 GRAMS TUBE TP SCH (12:18)
[2022-11-17 12:29] LABS: CALCIUM 8.9 mg/dL (8.5-10.1)
[2022-11-17 12:30] LABS: ALBUMIN 3.5 g/dl (3.4-5.0); BLOOD UREA NITROGEN 14.8 mg/dL (7-18)
[2022-11-17 12:34] LABS: BILIRUBIN,TOTAL 2.4 mg/dL (0.2-1); TOT PROT 8.2 g/dl (6.4-8.2)
[2022-11-17 12:37] LABS: CREATININE 0.8 mg/dL (0.55-1.3)
[2022-11-18] MEDS: NAFCILLIN - 2 GM in DEXTROSE 5%-WATER 100 ML IVPB SCH ×3 (03:17→10:53)
[2022-11-18] MEDS: SPIRONOLACTONE 25 MG TABLET PO SCH (10:54)
[2022-11-18] MEDS: MAGNESIUM OXIDE 400 MG TABLET (FP) PO SCH (10:54)
[2022-11-18] MEDS: FUROSEMIDE 40 MG TABLET (FP) PO SCH (10:54)
[2022-11-18] MEDS: THIAMINE HCL 100 MG TABLET (FP) PO SCH (10:54)
[2022-11-18] MEDS: MULTIVITAMINS (DAILY MVI) TABLET (FP) PO SCH (10:54)
[2022-11-18] MEDS: FOLIC ACID 1 MG TABLET (FP) PO SCH (10:54)
[2022-11-18] MEDS: COLLAGENASE CLOSTRIDIUM HIST. 30 GRAMS TUBE TP SCH (11:04)
[2022-11-18] MEDS ORDERED: CEFAZOLIN SODIUM 2 GM in DEXTROSE 5%-WATER 100 ML IVPB SCH (12:00)
[2022-11-18] MEDS: CEFAZOLIN SODIUM 2 GM in DEXTROSE 5%-WATER 100 ML IVPB SCH (18:35)
[2022-11-19] MEDS ORDERED: CEFAZOLIN SODIUM 2 GM VIAL ONE (01:55)
[2022-11-19] MEDS: CEFAZOLIN SODIUM 2 GM in DEXTROSE 5%-WATER 100 ML IVPB SCH ×3 (02:03→17:27)
[2022-11-19] MEDS: FOLIC ACID 1 MG TABLET (FP) PO SCH (10:11)
[2022-11-19] MEDS: THIAMINE HCL 100 MG TABLET (FP) PO SCH (10:11)
[2022-11-19] MEDS: MAGNESIUM OXIDE 400 MG TABLET (FP) PO SCH (10:11)
[2022-11-19] MEDS: MULTIVITAMINS (DAILY MVI) TABLET (FP) PO SCH (10:11)
[2022-11-19] MEDS: SPIRONOLACTONE 25 MG TABLET PO SCH (10:11)
[2022-11-19] MEDS: FUROSEMIDE 40 MG TABLET (FP) PO SCH (10:11)
[2022-11-19] MEDS: COLLAGENASE CLOSTRIDIUM HIST. 30 GRAMS TUBE TP SCH (10:39)
[2022-11-20] MEDS: CEFAZOLIN SODIUM 2 GM in DEXTROSE 5%-WATER 100 ML IVPB SCH ×4 (01:41→17:45)
[2022-11-20] MEDS: FOLIC ACID 1 MG TABLET (FP) PO SCH (10:35)
[2022-11-20] MEDS: SPIRONOLACTONE 25 MG TABLET PO SCH (10:35)
[2022-11-20] MEDS: THIAMINE HCL 100 MG TABLET (FP) PO SCH (10:37)
[2022-11-20] MEDS: MAGNESIUM OXIDE 400 MG TABLET (FP) PO SCH (10:37)
[2022-11-20] MEDS: MULTIVITAMINS (DAILY MVI) TABLET (FP) PO SCH ×2 (10:37→10:47)
[2022-11-20] MEDS: FUROSEMIDE 40 MG TABLET (FP) PO SCH (10:37)
[2022-11-20] MEDS: COLLAGENASE CLOSTRIDIUM HIST. 30 GRAMS TUBE TP SCH (18:37)
[2022-11-21] MEDS: CEFAZOLIN SODIUM 2 GM in DEXTROSE 5%-WATER 100 ML IVPB SCH ×3 (02:45→18:05)
[2022-11-21] MEDS: MAGNESIUM OXIDE 400 MG TABLET (FP) PO SCH (09:29)
[2022-11-21] MEDS: THIAMINE HCL 100 MG TABLET (FP) PO SCH (09:29)
[2022-11-21] MEDS: FOLIC ACID 1 MG TABLET (FP) PO SCH (09:29)
[2022-11-21] MEDS: FUROSEMIDE 40 MG TABLET (FP) PO SCH (09:29)
[2022-11-21] MEDS: SPIRONOLACTONE 25 MG TABLET PO SCH (09:29)
[2022-11-21] MEDS: MULTIVITAMINS (DAILY MVI) TABLET (FP) PO SCH (09:30)
[2022-11-21] MEDS: COLLAGENASE CLOSTRIDIUM HIST. 30 GRAMS TUBE TP SCH (17:04)
[2022-11-21 17:53] VITALS: BP 116/76; PULSE 84; RESP 16; TEMP 97.6
== END 2022-11-21 18:09 | DRG 603 ==
LOC: JER 18:40 → JERBED 23:26 → J5S 11-12 03:41 → OBSVTOIN 11-14 14:30
PROVIDERS: ADMIT Internal Medicine; ATTEND Family Medicine
PROC: 02HV33Z Insertion of Infusion Device into Superior Vena Cava, Percutaneous Approach (ICD-10-PCS; principal; 2022-11-18)
PROC: B518ZZA Fluoroscopy of Superior Vena Cava, Guidance (ICD-10-PCS; 2022-11-18)
DX: L03.115 Cellulitis of right lower limb (principal); D61.818 Other pancytopenia; F10.239 Alcohol dependence with withdrawal, unspecified; R78.81 Bacteremia; Z68.43 Body mass index [BMI] 50.0-59.9, adult; L08.89 Other specified local infections of the skin and subcutaneous tissue; E83.42 Hypomagnesemia; E87.6 Hypokalemia; E66.01 Morbid (severe) obesity due to excess calories; K74.60 Unspecified cirrhosis of liver; K70.9 Alcoholic liver disease, unspecified; D69.6 Thrombocytopenia, unspecified; K21.9 Gastro-esophageal reflux disease without esophagitis; D64.9 Anemia, unspecified; B95.61 Methicillin susceptible Staphylococcus aureus infection as the cause of diseases classified elsewhere
CPT/HCPCS: 36415; 36569; 71045-TC-FY; 73590-TC-RT-FY; 73610-TC-RT-FY; 77001-TC-FY; 80048; 80053; 80076; 83010; 83615; 83735; 84100; 84155; 84165; 85025; 85027; 85045; 85610; 85651; 85730; 86140; 87040; 87186; 87389; 87635; 93005; 93010; 93306-TC; 93971-TC; 99285-25; C1751; G0378

== ENCOUNTER 2023-05-22 12:41 | Emergency (ER) | payer OTHER ==
[2023-05-22 13:02] VITALS: BP 113/51; PULSE 81; RESP 18; TEMP 98.7; BMI 51.6
[2023-05-22 15:08] LABS: BASO % 0.7 % (0-2.0); EOS % 4.9 % (0-4.5); HEMOGLOBIN 10.6 GM/dL (11.7-16.9); LYMPH % 35.5 % (8-40); MCH 27.9 pg (25.7-33.7); MCHC 33.2 g/dl (32.0-35.9); MEAN CELL VOLUME 83.9 fl (80-96); MONO % 7.9 % (3.8-10.2); PLATELET COUNT 55 10^3/uL (134-434); RBC 3.81 M/mm3 (4.00-5.60); RDW 14.9 % (11.9-15.9); WHITE BLOOD COUNT 2.9 K/mm3 (4.0-10.0)
[2023-05-22 15:17] LABS: INR 1.18 (0.83-1.09); PROTHROMBIN TIME (PATIENT) 13.7 SEC (9.7-13.0)
[2023-05-22 15:20] LABS: ACTIVATED PTT 36.4 SECONDS (25.2-36.5)
[2023-05-22 15:55] LABS: POTASSIUM 3.7 mmol/L (3.5-5.1)
[2023-05-22 15:58] LABS: ALBUMIN 3.3 g/dl (3.4-5.0); CALCIUM 7.9 mg/dL (8.5-10.1)
[2023-05-22 15:59] LABS: BLOOD UREA NITROGEN 7.8 mg/dL (7-18)
[2023-05-22 16:02] LABS: CREATININE 0.5 mg/dL (0.55-1.3)
[2023-05-22 16:03] LABS: BILIRUBIN,TOTAL 0.9 mg/dL (0.2-1); TOT PROT 7.3 g/dl (6.4-8.2)
[2023-05-22 16:06] LABS: N-TERMINAL BNP 25.9 pg/ml (5-125)
[2023-05-22 18:24] LABS: PH,URINE 6.5 (5.0-8.0); URINE APPEARANCE CLEAR; URINE BILIRUBIN NEGATIVE (NEGATIVE); URINE COLOR YELLOW; URINE GLUCOSE (UA) NEGATIVE (NEGATIVE); URINE KETONE NEGATIVE (NEGATIVE); URINE LEUK ESTERASE NEGATIVE (NEGATIVE); URINE NITRITE NEGATIVE (NEGATIVE); URINE PROTEIN NEGATIVE (NEGATIVE); URINE UROBILINOGEN 0.2 mg/dL (0.2-1.0)
== END 2023-05-22 22:00 | disposition home or self-care (01) ==
LOC: JER 12:41
DX: R06.02 Shortness of breath (principal); R60.0 Localized edema; R05.9 Cough, unspecified; R35.89 Other polyuria; R06.00 Dyspnea, unspecified; Z20.822 Contact with and (suspected) exposure to COVID-19
CPT/HCPCS: 0241U-QW; 36415; 71046-TC-FY; 80053; 81003; 82550; 82553; 83690; 83880; 84484; 85025; 85610; 85730; 87086; 93005; 93010; 93970-TC; 99285-25

== ENCOUNTER 2023-06-08 20:25 | Inpatient (IN) | payer OTHER ==
[2023-06-09 01:59] VITALS: BMI 53.7
[2023-06-09] MEDS ORDERED: TRIMETHOBENZAMIDE HCL 200MG/2ML INJ IM ONE (06:03)
[2023-06-09] MEDS: TRIMETHOBENZAMIDE HCL 200MG/2ML INJ IM ONE (06:08)
[2023-06-09] MEDS ORDERED: MAGNESIUM HYDROX 2400MG/30ML ORAL SUSPENSION 30 ML CUP PO PRN (06:50)
[2023-06-09] MEDS ORDERED: DICYCLOMINE HCL 10 MG CAPSULE PO PRN (06:50)
[2023-06-09] MEDS ORDERED: guaiFENesin 600 MG TABLET.ER (FP) PO PRN (06:50)
[2023-06-09] MEDS ORDERED: NALOXONE HCL 0.4 MG/ML VIAL IM PRN (06:50)
[2023-06-09] MEDS ORDERED: LOPERAMIDE HCL 2 MG CAPSULE PO PRN (06:50)
[2023-06-09] MEDS ORDERED: POLYETHYLENE GLYCOL (HEALTHYLAX) 3350 17 GM PACKET PO PRN (06:50)
[2023-06-09] MEDS ORDERED: BENZOCAINE/MENTHOL (CHLORASEPTIC ) LOZENGE MM PRN (06:50)
[2023-06-09] MEDS ORDERED: ACETAMINOPHEN 325 MG TABLET (FP) PO PRN (06:50)
[2023-06-09] MEDS ORDERED: hydrOXYzine PAMOATE 25 MG CAPSULE (FP) PO PRN (06:50)
[2023-06-09] MEDS ORDERED: IBUPROFEN 400 MG TABLET (FP) PO PRN (06:50)
[2023-06-09] MEDS ORDERED: NALOXONE HCL (KLOXXADO) 8 MG SPRAY NS PRN (06:50)
[2023-06-09] MEDS ORDERED: BENZONATATE 200 MG CAPSULE PO PRN (06:50)
[2023-06-09] MEDS ORDERED: BISMUTH SUBSALICYLATE 524 MG/30 ML PO PRN (06:50)
[2023-06-09] MEDS ORDERED: ONDANSETRON *ODT* 4 MG TABLET SL PRN (06:50)
[2023-06-09] MEDS ORDERED: MAG HYDROX/AL HYDROX/SIMETH 30 ML UNIT-DOSE CUP PO PRN (06:50)
[2023-06-09] MEDS ORDERED: LORazepam 1 MG TABLET ONE (07:09)
[2023-06-09] MEDS: LORazepam 1 MG TABLET PO PRN (07:11)
[2023-06-09 08:53] VITALS: RESP 20
[2023-06-09] MEDS: PRENATAL VITAMINS W/ FOLIC ACID TABLET (FP) PO SCH (10:38)
[2023-06-09] MEDS: IBUPROFEN 600 MG TABLET (FP) PO PRN (10:38)
[2023-06-09] MEDS: LORazepam 2 MG TABLET PO SCH (10:39)
[2023-06-09] MEDS: METHOCARBAMOL 500 MG TABLET PO PRN (10:39)
[2023-06-09 12:35] LABS: HEMATOCRIT 25.6 % (35.4-49); HEMOGLOBIN 8.4 GM/dL (11.7-16.9); MCH 27.1 pg (25.7-33.7); MCHC 32.8 g/dl (32.0-35.9); MEAN CELL VOLUME 82.5 fl (80-96); RBC 3.11 M/mm3 (4.00-5.60); RDW 15.6 % (11.9-15.9)
[2023-06-09 12:45] LABS: POTASSIUM 3.4 mmol/L (3.5-5.1)
[2023-06-09 12:53] LABS: PLATELET COUNT 19 10^3/uL (134-434); WHITE BLOOD COUNT 0.5 K/mm3 (4.0-10.0)
[2023-06-09 12:55] LABS: ALBUMIN 3.1 g/dl (3.4-5.0); CALCIUM 8.2 mg/dL (8.5-10.1)
[2023-06-09 12:56] LABS: BLOOD UREA NITROGEN 8.9 mg/dL (7-18)
[2023-06-09 13:00] LABS: BILIRUBIN,TOTAL 1.2 mg/dL (0.2-1); CREATININE 0.5 mg/dL (0.55-1.3); TOT PROT 6.7 g/dl (6.4-8.2)
[2023-06-09 13:16] VITALS: BP 130/73; PULSE 93; TEMP 98.4
[2023-06-09] MEDS: THIAMINE HCL 100 MG TABLET (FP) PO SCH (23:11)
[2023-06-09] MEDS: MELATONIN 5 MG TABLETS PO SCH (23:11)
[2023-06-11] MEDS ORDERED: LORazepam 1 MG TABLET PO SCH (05:00)
[2023-06-12] MEDS ORDERED: LORazepam 0.5 MG TABLET PO PRN
[2023-06-12] MEDS ORDERED: LORazepam 0.5 MG TABLET PO SCH (05:00)
[2023-06-13] MEDS ORDERED: LORazepam 0.5 MG TABLET PO ONE (05:00)
== END 2023-06-10 10:06 | disposition short-term general hospital (02) | DRG 897 ==
LOC: YASAS 20:25 → Y3N 06-09 06:44
PROVIDERS: ADMIT Allergy & Immunology; ATTEND Allergy & Immunology
PROC: HZ2ZZZZ Detoxification Services for Substance Abuse Treatment (ICD-10-PCS; principal; 2023-06-09)
DX: F10.230 Alcohol dependence with withdrawal, uncomplicated (principal); Z68.43 Body mass index [BMI] 50.0-59.9, adult; K74.60 Unspecified cirrhosis of liver; E66.01 Morbid (severe) obesity due to excess calories; Z87.891 Personal history of nicotine dependence; Z56.0 Unemployment, unspecified
CPT/HCPCS: 36415; 80053; 80305; 80307; 85027; 86780; 87635; 87811; 93005; 93010

== ENCOUNTER 2023-06-09 14:29 | Inpatient (IN) | payer OTHER ==
[2023-06-09 14:56] VITALS: BMI 52.9
[2023-06-09] MEDS: chlordiazePOXIDE HCL 25 MG CAPSULE PO ONE ×2 (16:25→20:19)
[2023-06-09] MEDS ORDERED: chlordiazePOXIDE HCL 25 MG CAPSULE ONE ×2 (16:33→20:00)
[2023-06-09 17:26] LABS: EOS % 0.9 % (0-4.5); HEMATOCRIT 27.7 % (35.4-49); HEMOGLOBIN 8.8 GM/dL (11.7-16.9); LYMPH % 32.5 % (8-40); MCH 26.6 pg (25.7-33.7); MCHC 31.9 g/dl (32.0-35.9); MEAN CELL VOLUME 83.2 fl (80-96); MEAN PLT VOLUME 8.4 fl (7.5-11.1); MONO % 34.7 % (3.8-10.2); NEUT % 30.9 % (42.8-82.8); RBC 3.33 M/mm3 (4.00-5.60); RDW 15.5 % (11.9-15.9)
[2023-06-09 17:27] LABS: INR 1.3 (0.83-1.09)
[2023-06-09 17:29] LABS: ACTIVATED PTT 33.5 SECONDS (25.2-36.5)
[2023-06-09 17:32] LABS: WHITE BLOOD COUNT 0.4 K/mm3 (4.0-10.0)
[2023-06-09 17:33] LABS: PLATELET COUNT 30 10^3/uL (134-434)
[2023-06-09 18:02] LABS: POTASSIUM 3.4 mmol/L (3.5-5.1)
[2023-06-09 18:04] LABS: CALCIUM 8.7 mg/dL (8.5-10.1)
[2023-06-09 18:05] LABS: ALBUMIN 3.2 g/dl (3.4-5.0); BLOOD UREA NITROGEN 10.5 mg/dL (7-18)
[2023-06-09 18:08] LABS: CREATININE 0.6 mg/dL (0.55-1.3)
[2023-06-09 18:09] LABS: TOT PROT 7.1 g/dl (6.4-8.2)
[2023-06-09 18:10] LABS: BILIRUBIN,TOTAL 1.2 mg/dL (0.2-1)
[2023-06-09 19:03] LABS: ANISOCYTOSIS 1+; OVALOCYTE 1+; PLATELET ESTIMATE DECREASED
[2023-06-09] MEDS ORDERED: CEFEPIME 2 GM/100 ML BAG IVPB ONE (19:22)
[2023-06-09] MEDS: CEFEPIME HCL 2 GM VIAL (RESTRICTED TO ID) IVPB ONE (19:41)
[2023-06-09] MEDS ORDERED: VANCOMYCIN 1 GRAM (PRE-DOCKED) 1,000 MG/250 ML BAG IVPB ONE (20:00)
[2023-06-09] MEDS ORDERED: ACETAMINOPHEN INJECTION 100 ML IVPB ONE (20:00)
[2023-06-09] MEDS: ACETAMINOPHEN 1000 MG/100 ML BAG IVPB ONE (20:19)
[2023-06-09] MEDS: VANCOMYCIN 1,000 MG in DEXTROSE 5%-WATER - 250 ML IVPB ONE (20:19)
[2023-06-09] MEDS ORDERED: DOCUSATE SODIUM 100 MG CAPSULE (FP) PO PRN (22:58)
[2023-06-09] MEDS ORDERED: chlordiazePOXIDE HCL 25 MG CAPSULE PO PRN (23:12)
[2023-06-09] MEDS ORDERED: ONDANSETRON 4 MG/2 ML VIAL IVPUSH PRN (23:16)
[2023-06-09] MEDS ORDERED: BISMUTH SUBSALICYLATE 524 MG/30 ML PO PRN (23:16)
[2023-06-09] MEDS ORDERED: MAG HYDROX/AL HYDROX/SIMETH 30 ML UNIT-DOSE CUP PO PRN (23:16)
[2023-06-09] MEDS ORDERED: DICYCLOMINE HCL 10 MG CAPSULE PO PRN (23:16)
[2023-06-09 23:36] LABS: MAGNESIUM 1.6 mg/dL (1.8-2.4)
[2023-06-09 23:40] LABS: PHOSPHOROUS 3.2 mg/dL (2.5-4.9)
[2023-06-10] MEDS: chlordiazePOXIDE HCL 25 MG CAPSULE PO SCH (01:13)
[2023-06-10] MEDS: FOLIC ACID 1 MG TABLET (FP) PO ONE (01:26)
[2023-06-10] MEDS ORDERED: CEFEPIME 2 GM/100 ML BAG IVPB ONE ×4 (02:37→18:33)
[2023-06-10] MEDS: CEFEPIME 2 GM in DEXTROSE 5%-WATER 100 ML IVPB SCH (02:46)
[2023-06-10] MEDS ORDERED: LOPERAMIDE HCL 2 MG CAPSULE ONE ×2 (05:20→05:23)
[2023-06-10] MEDS ORDERED: chlordiazePOXIDE HCL 25 MG CAPSULE ONE ×4 (05:20→22:12)
[2023-06-10] MEDS: LOPERAMIDE HCL 2 MG CAPSULE PO PRN (05:24)
[2023-06-10 07:05] LABS: POTASSIUM 3.3 mmol/L (3.5-5.1)
[2023-06-10 07:10] LABS: CALCIUM 8.3 mg/dL (8.5-10.1)
[2023-06-10 07:12] LABS: BLOOD UREA NITROGEN 12.1 mg/dL (7-18)
[2023-06-10 07:14] LABS: CREATININE 0.6 mg/dL (0.55-1.3)
[2023-06-10 07:42] LABS: HEMATOCRIT 26.3 % (35.4-49); HEMOGLOBIN 8.4 GM/dL (11.7-16.9); MCH 26.5 pg (25.7-33.7); MCHC 32.1 g/dl (32.0-35.9); MEAN CELL VOLUME 82.6 fl (80-96); MEAN PLT VOLUME 8.5 fl (7.5-11.1); RBC 3.18 M/mm3 (4.00-5.60); RDW 15.6 % (11.9-15.9)
[2023-06-10 08:09] LABS: PLATELET COUNT 22 10^3/uL (134-434); WHITE BLOOD COUNT 0.7 K/mm3 (4.0-10.0)
[2023-06-10 08:23] LABS: INR 1.53 (0.83-1.09); PROTHROMBIN TIME (PATIENT) 17.7 SEC (9.7-13.0)
[2023-06-10 08:26] LABS: ACTIVATED PTT 33.4 SECONDS (25.2-36.5)
[2023-06-10 08:53] LABS: ANISOCYTOSIS 0; HELMET CELLS 0; HOWELL-JOLLY BODIES 0; MACROCYTOSIS 0; OVALOCYTE 0; ROULEAU 0; SICKELED CELLS 0; TARGET CELLS 0; TEAR DROP CELLS 0; TOXIC GRANULATION 0
[2023-06-10] MEDS ORDERED: ACETAMINOPHEN INJECTION 100 ML IVPB ONE ×2 (08:57→16:15)
[2023-06-10] MEDS: VANCOMYCIN/WATER 2 GRAMS 2,000 MG/400 ML PIGGYBACK IVPB SCH (08:59)
[2023-06-10] MEDS: ACETAMINOPHEN 1000 MG/100 ML BAG IVPB PRN (08:59)
[2023-06-10] MEDS ORDERED: MULTIVITAMINS (DAILY MVI) TABLET (FP) ONE (09:32)
[2023-06-10] MEDS ORDERED: FUROSEMIDE 20 MG TABLET (FP) ONE (09:32)
[2023-06-10] MEDS: FUROSEMIDE 20 MG TABLET (FP) PO SCH (10:06)
[2023-06-10] MEDS: MULTIVITAMINS (DAILY MVI) TABLET (FP) PO SCH (10:06)
[2023-06-10 16:25] LABS: EPI CELLS 5 /uL (0-25.1); HYALINE CASTS 0 /uL (0-3.1); PH,URINE 7.5 (5.0-8.0); URINE APPEARANCE CLEAR; URINE BACTERIA 2 /uL (0-1359); URINE BILIRUBIN NEGATIVE (NEGATIVE); URINE COLOR YELLOW; URINE GLUCOSE (UA) NEGATIVE (NEGATIVE); URINE KETONE TRACE (NEGATIVE); URINE LEUK ESTERASE NEGATIVE (NEGATIVE); URINE NITRITE NEGATIVE (NEGATIVE); URINE PROTEIN 1+ (NEGATIVE); URINE RBC 21 /uL (0-23.9); URINE WBC 3 /uL (0-25.8)
[2023-06-10] MEDS ORDERED: THIAMINE HCL 100 MG TABLET (FP) ONE (21:09)
[2023-06-10] MEDS: THIAMINE HCL 100 MG TABLET (FP) PO SCH (21:15)
[2023-06-11] MEDS ORDERED: chlordiazePOXIDE HCL 25 MG CAPSULE ONE ×2 (05:07→10:21)
[2023-06-11] MEDS: chlordiazePOXIDE HCL 25 MG CAPSULE PO SCH (05:14)
[2023-06-11 08:12] LABS: POTASSIUM 3.3 mmol/L (3.5-5.1)
[2023-06-11 08:15] LABS: ALBUMIN 3.2 g/dl (3.4-5.0); BLOOD UREA NITROGEN 10.4 mg/dL (7-18)
[2023-06-11 08:18] LABS: CREATININE 0.6 mg/dL (0.55-1.3)
[2023-06-11 08:19] LABS: BILIRUBIN,TOTAL 1.2 mg/dL (0.2-1)
[2023-06-11 08:28] LABS: HEMATOCRIT 27.6 % (35.4-49); HEMOGLOBIN 8.8 GM/dL (11.7-16.9); MCH 26.4 pg (25.7-33.7); MCHC 31.9 g/dl (32.0-35.9); MEAN CELL VOLUME 82.6 fl (80-96); MEAN PLT VOLUME 8.3 fl (7.5-11.1); RBC 3.35 M/mm3 (4.00-5.60); RDW 15.7 % (11.9-15.9)
[2023-06-11 08:34] LABS: PLATELET COUNT 20 10^3/uL (134-434); WHITE BLOOD COUNT 0.8 K/mm3 (4.0-10.0)
[2023-06-11] MEDS ORDERED: FUROSEMIDE 20 MG TABLET (FP) ONE (10:21)
[2023-06-11] MEDS ORDERED: MULTIVITAMINS (DAILY MVI) TABLET (FP) ONE (10:21)
[2023-06-11] MEDS ORDERED: THIAMINE HCL 100 MG TABLET (FP) ONE (10:21)
[2023-06-11] MEDS ORDERED: CEFEPIME 2 GM/100 ML BAG IVPB ONE (10:48)
[2023-06-11] MEDS: CEFEPIME 2 GM in DEXTROSE 5%-WATER 100 ML IVPB SCH (10:53)
[2023-06-11] MEDS ORDERED: POTASSIUM CHLORIDE TABS 10 MEQ TABLET.ER (FP) ONE (13:06)
[2023-06-11] MEDS: VANCOMYCIN PREMIX 1.5 GM 1,500 MG/300 ML BAG IVPB SCH (13:16)
[2023-06-11] MEDS: POTASSIUM CHLORIDE TABS 10 MEQ TABLET.ER (FP) PO SCH (13:16)
[2023-06-11] MEDS: LORazepam 2 MG/ML SDV VIAL IVPUSH PRN (13:27)
[2023-06-11] MEDS: CEFEPIME HCL 2 GM VIAL (RESTRICTED TO ID) IVPB SCH (15:15)
[2023-06-11] MEDS: VANCOMYCIN 2,000 MG in DEXTROSE 5%-WATER - 500 ML IVPB SCH (15:16)
[2023-06-12] MEDS ORDERED: chlordiazePOXIDE HCL 10 MG CAPSULE PO PRN
[2023-06-12] MEDS: ACETAMINOPHEN 1000 MG/100 ML BAG IVPB PRN (04:11)
[2023-06-12] MEDS: chlordiazePOXIDE HCL 10 MG CAPSULE PO SCH (04:25)
[2023-06-12 08:43] LABS: ALBUMIN 3.2 g/dl (3.4-5.0); CALCIUM 7.7 mg/dL (8.5-10.1); HEMATOCRIT 28.1 % (35.4-49); HEMOGLOBIN 9.1 GM/dL (11.7-16.9); MCH 26.8 pg (25.7-33.7); MCHC 32.5 g/dl (32.0-35.9); MEAN CELL VOLUME 82.3 fl (80-96); MEAN PLT VOLUME 8.8 fl (7.5-11.1); RBC 3.41 M/mm3 (4.00-5.60); RDW 15.3 % (11.9-15.9)
[2023-06-12 08:44] LABS: BLOOD UREA NITROGEN 10.5 mg/dL (7-18)
[2023-06-12 08:47] LABS: CREATININE 0.7 mg/dL (0.55-1.3)
[2023-06-12 08:48] LABS: BILIRUBIN,TOTAL 1.2 mg/dL (0.2-1); TOT PROT 6.9 g/dl (6.4-8.2)
[2023-06-12 09:45] LABS: WHITE BLOOD COUNT 1.1 K/mm3 (4.0-10.0)
[2023-06-12 09:46] LABS: PLATELET COUNT 27 10^3/uL (134-434)
[2023-06-12 09:52] LABS: ANISOCYTOSIS 0; MACROCYTOSIS 0
[2023-06-12] MEDS: POTASSIUM CHLORIDE ORAL LIQUID 20 MEQ/15 ML PO ONE (12:42)
[2023-06-12] MEDS: SPIRONOLACTONE 25 MG TABLET PO SCH (16:46)
[2023-06-12] MEDS: SPIRONOLACTONE 25 MG TABLET PO ONE (17:20)
[2023-06-12] MEDS: MELATONIN 5 MG TABLETS PO PRN (22:42)
[2023-06-13] MEDS: ALBUMIN HUMAN 25% 12.5 GM/50 ML VIAL IV SCH (05:38)
[2023-06-13] MEDS: chlordiazePOXIDE HCL 10 MG CAPSULE PO SCH (05:45)
[2023-06-13] MEDS: FUROSEMIDE 40 MG/4 ML INJECTABLE VIAL IVPUSH SCH (06:17)
[2023-06-13 08:12] LABS: HEMATOCRIT 30.8 % (35.4-49); HEMOGLOBIN 9.8 GM/dL (11.7-16.9); MCH 26.2 pg (25.7-33.7); MCHC 31.7 g/dl (32.0-35.9); MEAN CELL VOLUME 82.8 fl (80-96); MEAN PLT VOLUME 9.1 fl (7.5-11.1); RBC 3.72 M/mm3 (4.00-5.60); RDW 15.9 % (11.9-15.9)
[2023-06-13 08:28] LABS: POTASSIUM 3.4 mmol/L (3.5-5.1)
[2023-06-13 08:31] LABS: CALCIUM 8.6 mg/dL (8.5-10.1)
[2023-06-13 08:32] LABS: ALBUMIN 3.4 g/dl (3.4-5.0); BLOOD UREA NITROGEN 12.3 mg/dL (7-18)
[2023-06-13 08:33] LABS: PLATELET COUNT 35 10^3/uL (134-434)
[2023-06-13 08:35] LABS: CREATININE 0.7 mg/dL (0.55-1.3)
[2023-06-13 08:36] LABS: TOT PROT 7.7 g/dl (6.4-8.2)
[2023-06-13] MEDS: POTASSIUM CHLORIDE TABS 20 MEQ TABLET.ER (FP) PO SCH (09:29)
[2023-06-13] MEDS ORDERED: METOLAZONE 2.5 MG TABLET (FP) PO SCH (10:00)
[2023-06-13] MEDS: ALBUTEROL SO4 2.5/IPRATROPIUM 0.5 INH SOL 3 ML VIAL.NEB. NEB ONE (10:14)
[2023-06-13] MEDS: LACTULOSE 20 GM/30 ML UDC (FOR ORAL USE ONLY) PO SCH (11:00)
[2023-06-13] MEDS: ALBUTEROL SO4 2.5/IPRATROPIUM 0.5 INH SOL 3 ML VIAL.NEB. NEB SCH (11:57)
[2023-06-13] MEDS: METOLAZONE 2.5 MG TABLET (FP) PO SCH (13:07)
[2023-06-13] MEDS: methylPREDNISolone NA SUCC 40 MG/1 ML VIAL IVPUSH SCH (14:02)
[2023-06-14] MEDS: chlordiazePOXIDE HCL 10 MG CAPSULE PO ONE (05:30)
[2023-06-14 07:43] LABS: POTASSIUM 3.2 mmol/L (3.5-5.1)
[2023-06-14 07:45] LABS: CALCIUM 8.9 mg/dL (8.5-10.1)
[2023-06-14 07:46] LABS: ALBUMIN 3.6 g/dl (3.4-5.0)
[2023-06-14 07:48] LABS: BLOOD UREA NITROGEN 15.5 mg/dL (7-18)
[2023-06-14 07:49] LABS: CREATININE 0.6 mg/dL (0.55-1.3)
[2023-06-14 07:50] LABS: BILIRUBIN,TOTAL 1.2 mg/dL (0.2-1); TOT PROT 7.7 g/dl (6.4-8.2)
[2023-06-14] MEDS: POTASSIUM CHLORIDE ORAL LIQUID 20 MEQ/15 ML PO ONE (08:12)
[2023-06-14] MEDS: SPIRONOLACTONE 25 MG TABLET PO SCH (09:20)
[2023-06-14 11:10] LABS: HEMATOCRIT 31.3 % (35.4-49); HEMOGLOBIN 9.8 GM/dL (11.7-16.9); MCHC 31.4 g/dl (32.0-35.9); MEAN CELL VOLUME 82.7 fl (80-96); MEAN PLT VOLUME 8.9 fl (7.5-11.1); RBC 3.79 M/mm3 (4.00-5.60); RDW 15.3 % (11.9-15.9)
[2023-06-14 11:15] LABS: PLATELET COUNT 36 10^3/uL (134-434)
[2023-06-14 11:19] LABS: WHITE BLOOD COUNT 1.3 K/mm3 (4.0-10.0)
[2023-06-14 11:56] LABS: ANISOCYTOSIS 0; MACROCYTOSIS 0
[2023-06-14] MEDS: AMOX TR/POT CLAV 875MG/125MG TABLETS (FP) PO SCH (17:13)
[2023-06-15 07:36] LABS: BASO % 0.1 % (0-2.0); EOS % 0.1 % (0-4.5); HEMATOCRIT 29.2 % (35.4-49); HEMOGLOBIN 9.3 GM/dL (11.7-16.9); LYMPH % 16.7 % (8-40); MCH 26.1 pg (25.7-33.7); MCHC 31.7 g/dl (32.0-35.9); MEAN CELL VOLUME 82.2 fl (80-96); MEAN PLT VOLUME 9.7 fl (7.5-11.1); MONO % 12.7 % (3.8-10.2); NEUT % 70.4 % (42.8-82.8); PLATELET COUNT 48 10^3/uL (134-434); RBC 3.55 M/mm3 (4.00-5.60); RDW 15.6 % (11.9-15.9); WHITE BLOOD COUNT 2.5 K/mm3 (4.0-10.0)
[2023-06-15 08:02] LABS: POTASSIUM 3.4 mmol/L (3.5-5.1)
[2023-06-15 08:04] LABS: CALCIUM 9.1 mg/dL (8.5-10.1)
[2023-06-15 08:05] LABS: MAGNESIUM 1.9 mg/dL (1.8-2.4)
[2023-06-15 08:07] LABS: ALBUMIN 3.3 g/dl (3.4-5.0); BLOOD UREA NITROGEN 24.7 mg/dL (7-18)
[2023-06-15 08:08] LABS: CREATININE 0.6 mg/dL (0.55-1.3)
[2023-06-15 08:09] LABS: TOT PROT 7.3 g/dl (6.4-8.2)
[2023-06-15] MEDS: BENZONATATE 200 MG CAPSULE PO PRN (10:18)
[2023-06-15] MEDS: LACTULOSE 20 GM/30 ML UDC (FOR ORAL USE ONLY) PO SCH (13:08)
[2023-06-15] MEDS: METOLAZONE 2.5 MG TABLET (FP) PO SCH (13:10)
[2023-06-15] MEDS: POTASSIUM CHLORIDE TABS 20 MEQ TABLET.ER (FP) PO ONE (17:12)
[2023-06-16 07:38] LABS: HEMATOCRIT 30.5 % (35.4-49); HEMOGLOBIN 9.7 GM/dL (11.7-16.9); MCH 26.2 pg (25.7-33.7); MCHC 31.7 g/dl (32.0-35.9); MEAN CELL VOLUME 82.4 fl (80-96); MEAN PLT VOLUME 9.1 fl (7.5-11.1); PLATELET COUNT 56 10^3/uL (134-434); RDW 15.7 % (11.9-15.9); WHITE BLOOD COUNT 2.9 K/mm3 (4.0-10.0)
[2023-06-16 07:52] LABS: POTASSIUM 3.5 mmol/L (3.5-5.1)
[2023-06-16 07:56] LABS: ALBUMIN 3.7 g/dl (3.4-5.0); BLOOD UREA NITROGEN 30.4 mg/dL (7-18)
[2023-06-16 07:59] LABS: CREATININE 0.8 mg/dL (0.55-1.3)
[2023-06-16 08:00] LABS: BILIRUBIN,TOTAL 1.2 mg/dL (0.2-1); TOT PROT 7.6 g/dl (6.4-8.2)
[2023-06-16] MEDS: FAMOTIDINE 20 MG TABLET PO SCH (09:32)
[2023-06-16] MEDS: predniSONE 10 MG TABLET (UD) PO ONE (09:32)
[2023-06-16] MEDS: ALBUMIN HUMAN 25% 12.5 GM/50 ML VIAL IV SCH ×2 (13:08→21:44)
[2023-06-17 08:40] LABS: HEMATOCRIT 31.3 % (35.4-49); HEMOGLOBIN 10.1 GM/dL (11.7-16.9); MCH 26.1 pg (25.7-33.7); MCHC 32.1 g/dl (32.0-35.9); MEAN CELL VOLUME 81.5 fl (80-96); PLATELET COUNT 72 10^3/uL (134-434); RBC 3.85 M/mm3 (4.00-5.60); RDW 15.5 % (11.9-15.9); WHITE BLOOD COUNT 3.3 K/mm3 (4.0-10.0)
[2023-06-17 08:53] LABS: BLOOD UREA NITROGEN 28.8 mg/dL (7-18)
[2023-06-17 08:55] LABS: CALCIUM 10.2 mg/dL (8.5-10.1); CREATININE 0.8 mg/dL (0.55-1.3)
[2023-06-17 08:57] LABS: BILIRUBIN,TOTAL 1.6 mg/dL (0.2-1)
[2023-06-17] MEDS: POTASSIUM CHLORIDE ORAL LIQUID 20 MEQ/15 ML PO ONE (21:58)
[2023-06-18 09:54] LABS: BASO % 0.5 % (0-2.0); EOS % 2.7 % (0-4.5); HEMATOCRIT 32.3 % (35.4-49); HEMOGLOBIN 10.5 GM/dL (11.7-16.9); LYMPH % 20.1 % (8-40); MCH 26.3 pg (25.7-33.7); MCHC 32.6 g/dl (32.0-35.9); MEAN CELL VOLUME 80.7 fl (80-96); MEAN PLT VOLUME 9.2 fl (7.5-11.1); MONO % 15.3 % (3.8-10.2); NEUT % 61.4 % (42.8-82.8); PLATELET COUNT 86 10^3/uL (134-434); RBC 4.01 M/mm3 (4.00-5.60); RDW 15.7 % (11.9-15.9); WHITE BLOOD COUNT 3.6 K/mm3 (4.0-10.0)
[2023-06-18 09:59] LABS: INR 1.37 (0.83-1.09); PROTHROMBIN TIME (PATIENT) 15.8 SEC (9.7-13.0)
[2023-06-18 10:27] LABS: ALBUMIN 4.6 g/dl (3.4-5.0); ALK PHOS 130 U/L (45-117); ANION GAP 11 mmol/L (4-13); BILIRUBIN,TOTAL 2.3 mg/dL (0.2-1); BLOOD UREA NITROGEN 32.6 mg/dL (7-18); CALCIUM 10.5 mg/dL (8.5-10.1); CHLORIDE 98 mmol/L (98-107); CO2 28 mmol/L (21-32); GLUCOSE,RANDOM 104 mg/dL (74-106); POTASSIUM 2.8 mmol/L (3.5-5.1); SGOT/AST 223 U/L (15-37); SGPT/ALT 193 U/L (13-61); SODIUM 136 mmol/L (136-145); TOT PROT 8.7 g/dl (6.4-8.2)
[2023-06-18] MEDS: POTASSIUM CHLORIDE ORAL LIQUID 20 MEQ/15 ML PO ONE (14:22)
[2023-06-19 07:33] LABS: HEMATOCRIT 29.7 % (35.4-49); HEMOGLOBIN 9.7 GM/dL (11.7-16.9); MCH 26.4 pg (25.7-33.7); MCHC 32.7 g/dl (32.0-35.9); MEAN CELL VOLUME 80.6 fl (80-96); PLATELET COUNT 80 10^3/uL (134-434); RBC 3.68 M/mm3 (4.00-5.60); RDW 15.8 % (11.9-15.9); WHITE BLOOD COUNT 3.8 K/mm3 (4.0-10.0)
[2023-06-19 07:38] LABS: POTASSIUM 3.1 mmol/L (3.5-5.1)
[2023-06-19 07:42] LABS: ALBUMIN 4.2 g/dl (3.4-5.0); CALCIUM 9.1 mg/dL (8.5-10.1)
[2023-06-19 07:43] LABS: BLOOD UREA NITROGEN 36.6 mg/dL (7-18)
[2023-06-19 07:45] LABS: CREATININE 0.9 mg/dL (0.55-1.3)
[2023-06-19 07:47] LABS: BILIRUBIN,TOTAL 1.7 mg/dL (0.2-1); TOT PROT 7.9 g/dl (6.4-8.2)
[2023-06-19] MEDS: POTASSIUM CHLORIDE ORAL LIQUID 20 MEQ/15 ML PO ONE (08:30)
[2023-06-19] MEDS: POTASSIUM CHLORIDE ORAL LIQUID 20 MEQ/15 ML PO STA (09:59)
[2023-06-19] MEDS: POTASSIUM CHLORIDE TABS 20 MEQ TABLET.ER (FP) PO SCH (10:00)
[2023-06-19] MEDS ORDERED: TORSEMIDE 20 MG TABLET (FP) PO SCH (10:00)
[2023-06-19] MEDS: TORSEMIDE 20 MG TABLET (FP) PO SCH (10:00)
[2023-06-20 11:35] LABS: HEMATOCRIT 33.7 % (35.4-49); HEMOGLOBIN 11.1 GM/dL (11.7-16.9); MCH 26.3 pg (25.7-33.7); MCHC 32.8 g/dl (32.0-35.9); MEAN PLT VOLUME 9.1 fl (7.5-11.1); PLATELET COUNT 111 10^3/uL (134-434); RBC 4.22 M/mm3 (4.00-5.60); RDW 15.7 % (11.9-15.9); WHITE BLOOD COUNT 6.4 K/mm3 (4.0-10.0)
[2023-06-20 11:56] LABS: POTASSIUM 3.1 mmol/L (3.5-5.1)
[2023-06-20 12:03] LABS: CALCIUM 10.1 mg/dL (8.5-10.1)
[2023-06-20 12:04] LABS: ALBUMIN 4.4 g/dl (3.4-5.0); BLOOD UREA NITROGEN 37.8 mg/dL (7-18)
[2023-06-20 12:08] LABS: BILIRUBIN,TOTAL 2.7 mg/dL (0.2-1); TOT PROT 8.6 g/dl (6.4-8.2)
[2023-06-20] MEDS: POTASSIUM CHLORIDE ORAL LIQUID 20 MEQ/15 ML PO ONE (14:29)
[2023-06-20 15:03] VITALS: BP 113/67; PULSE 76; RESP 18; TEMP 97.8
== END 2023-06-20 16:26 | disposition home or self-care (01) | DRG 809 ==
LOC: JER 14:29 → JERBED 20:30 → J4S 06-11 15:16
PROVIDERS: ADMIT Internal Medicine; ATTEND Family Medicine
DX: D61.818 Other pancytopenia (principal); F10.239 Alcohol dependence with withdrawal, unspecified; Z68.43 Body mass index [BMI] 50.0-59.9, adult; K92.1 Melena; E87.6 Hypokalemia; E83.42 Hypomagnesemia; K70.30 Alcoholic cirrhosis of liver without ascites; K21.9 Gastro-esophageal reflux disease without esophagitis; E66.01 Morbid (severe) obesity due to excess calories; D50.9 Iron deficiency anemia, unspecified; G47.33 Obstructive sleep apnea (adult) (pediatric); I89.0 Lymphedema, not elsewhere classified; R50.81 Fever presenting with conditions classified elsewhere; R06.2 Wheezing; J98.01 Acute bronchospasm; F41.9 Anxiety disorder, unspecified; I50.9 Heart failure, unspecified
CPT/HCPCS: 36415; 70450-TC; 71045-TC-FY; 76700-TC; 80048; 80053; 81003; 82105; 82140; 82272; 82962; 83010; 83605; 83615; 83735; 84100; 84132; 85025; 85027; 85379; 85384; 85610; 85730; 87040; 87086; 93005; 93010; 94640; 99285-25; J0131; P9047

== ENCOUNTER 2023-11-14 15:45 | Emergency (ER) | payer OTHER ==
[2023-11-14 16:13] VITALS: BP 150/81; PULSE 84; RESP 16; TEMP 98; BMI 54.8
[2023-11-14 17:05] LABS: EOS % 3.2 % (0-4.5); HEMATOCRIT 27.1 % (35.4-49); HEMOGLOBIN 8.8 GM/dL (11.7-16.9); LYMPH % 27.1 % (8-40); MCH 25.5 pg (25.7-33.7); MCHC 32.7 g/dl (32.0-35.9); MEAN PLT VOLUME 8.1 fl (7.5-11.1); MONO % 9.2 % (3.8-10.2); NEUT % 59.5 % (42.8-82.8); PLATELET COUNT 49 10^3/uL (134-434); RBC 3.47 M/mm3 (4.00-5.60); RDW 16.7 % (11.9-15.9); WHITE BLOOD COUNT 2.3 K/mm3 (4.0-10.0)
[2023-11-14 17:12] LABS: INR 1.22 (0.83-1.09); PROTHROMBIN TIME (PATIENT) 13.7 SEC (9.7-13.0)
[2023-11-14 17:15] LABS: ACTIVATED PTT 34.2 SECONDS (25.2-36.5)
[2023-11-14 17:30] LABS: POTASSIUM 3.3 mmol/L (3.5-5.1)
[2023-11-14 17:33] LABS: CALCIUM 8.2 mg/dL (8.5-10.1)
[2023-11-14 17:34] LABS: ALBUMIN 3.7 g/dl (3.4-5.0); BLOOD UREA NITROGEN 7.3 mg/dL (7-18); MAGNESIUM 1.8 mg/dL (1.8-2.4)
[2023-11-14 17:36] LABS: CREATININE 0.6 mg/dL (0.55-1.3); PHOSPHOROUS 3.2 mg/dL (2.5-4.9)
[2023-11-14] MEDS ORDERED: POTASSIUM CHLORIDE TABS 20 MEQ TABLET.ER (FP) PO ONE (17:36)
[2023-11-14 17:38] LABS: TOT PROT 7.7 g/dl (6.4-8.2)
[2023-11-14] MEDS: POTASSIUM CHLORIDE TABS 20 MEQ TABLET.ER (FP) PO ONE (17:41)
== END 2023-11-14 20:24 | disposition home or self-care (01) ==
LOC: JER 15:45
DX: K74.60 Unspecified cirrhosis of liver (principal); D61.818 Other pancytopenia; R60.0 Localized edema; R14.0 Abdominal distension (gaseous); R19.00 Intra-abdominal and pelvic swelling, mass and lump, unspecified site
CPT/HCPCS: 36415; 71045-TC-FY; 80053; 82140; 83735; 83880; 84100; 85025; 85610; 85730; 86850; 86900; 86901; 93005; 93010; 93970-TC; 99285-25